=== PATIENT | female | born 2005 | race Caucasian/White ===

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

== ENCOUNTER 2025-03-22 08:26 | Inpatient (IN) | payer OTHER, SELFPAY ==
[2025-03-22] VITALS (19 sets, daily range): BP systolic 104–129; BP diastolic 63–89; PULSE 68–135; RESP 16–18; TEMP 36.6–37.2; O2SAT 92–98; BMI 22.1; BMI 21.4
--- NOTE | 2025-03-22 08:42 | RAD_ITS ---
PROCEDURE: CHEST 1 VIEW (PORTABLE) 03/22/2025 REASON FOR EXAM: SHORTNESS OF BREATH, ASTHMA TECHNIQUE: Frontal view of the chest. COMPARISON: 11/09/2023 FINDINGS: LUNGS AND PLEURA: Focal consolidation in the infrahilar right lung. No pleural effusion or pneumothorax. HEART AND MEDIASTINUM: The heart size and mediastinal contours are normal. BONES: No acute osseous abnormality. RAD/Chest 1 View (Portable) IMPRESSION: Right lung consolidation, consistent with pneumonia. Reading Location: [id number]
--- NOTE | 2025-03-22 08:47 | ED.VIS.DYS ---
HPI History of Present Illness Chief Complaint: Shortness of Breath Narrative Narrative: 19-year-old female past medical history of asthma presents with her significant other because increasing shortness of breath. She states that she has been using her nebulizer treatment at home without success. Her symptoms began yesterday evening. She states she has an occasional cough. She relates history that remotely when she was much younger, she had to be intubated and admitted to the hospital because of asthma exacerbation. Over the last few years has been well-controlled. She denies any fevers or chills but states she has had cough and increased difficulty breathing since yesterday evening. Her last steroid use was probably a month ago when she received a Kenalog shot. She does smoke. PFSH PFSH Home Medications ?Medication ?Instructions ?Recorded ?Last Taken ?Type fluoride (sodium) 1 mg PO DAILY 06/05/14 Unknown History loratadine 10 mg tablet (Allergy 10 mg PO DAILY PRN PRN Allergies 06/05/14 Unknown History Relief (loratadine)) albuterol sulfate 2.5 mg/3 mL 1 dose inhalation Q4H PRN PRN Sob 09/02/15 Unknown History (0.083 %) solution for nebulization &/Or Wheezing albuterol sulfate 90 mcg/actuation 2 puff inhalation Q6H PRN PRN Sob 09/02/15 Unknown History aerosol inhaler (Ventolin HFA) &/Or Wheezing mometasone 220 mcg/actuation(30 1 dose inhalation DAILY 09/02/15 Unknown History doses) breath activated powder inhaler (Asmanex Twisthaler) azithromycin 250 mg tablet 250 mg PO DAILY #3 tabs 09/03/15 Unknown Rx montelukast 5 mg chewable tablet 5 mg PO DAILY ##30 09/03/15 Unknown Rx (Singulair) prednisone 10 mg tablet 30 mg (3 x 10 mg) PO BIDCM #18 tabs 09/03/15 Unknown Rx Allergy/AdvReac Type Severity Reaction Status Date / Time animal dander Allergy Other Verified 03/22/25 08:27 Seasonal Allergies: Uncoded Allergy NEEDS Verified 03/22/25 08:27 FOLLOW-UP Social History Smoking Status: Never smoker ROS ROS ED ROS Narrative Review of systems is positive for shortness of breath, cough, and wheezing. Denies fevers or chills. Feels similar to previous asthma exacerbations. No leg swelling. Using albuterol nebulizer treatment 6 times in the last 24 hours without relief. EXAM Physical Exam Narrative Exam Narrative: Afebrile. Vital signs noted. Nontoxic-appearing. Cardiovascular examination reveals mild tachycardia. Respiratory examination shows diffuse expiratory wheezing throughout the bilateral lung schmidt. Intermittent tachypnea. Abdomen is soft nontender with positive bowel sounds. Neurological examination nonfocal, nonlateralizing. No noted pedal edema bilaterally. Const Vital Signs: 03/22/25 08:27 03/22/25 08:28 03/22/25 08:42 Temperature 99 F Temperature Source Temporal Pulse Rate 121 H 115 H Respiratory Rate 16 Respiratory Effort Respiratory Pattern Blood Pressure 125/89 H Blood Pressure Mean 101 Pulse Ox 92 96 Oxygen Delivery Method Room Air Room Air Oxygen Flow Rate (L/min) 03/22/25 08:47 03/22/25 09:05 03/22/25 10:11 Temperature Temperature Source Pulse Rate 116 H 135 H Respiratory Rate 16 16 Respiratory Effort Short of Breath Labored Respiratory Pattern Tachypnea Blood Pressure Blood Pressure Mean Pulse Ox Oxygen Delivery Method Room Air Oxygen Flow Rate (L/min) 03/22/25 10:58 Temperature Temperature Source Pulse Rate Respiratory Rate Respiratory Effort Respiratory Pattern Blood Pressure Blood Pressure Mean Pulse Ox 95 Oxygen Delivery Method Nasal Cannula Oxygen Flow Rate (L/min) 2 MDM MDM MDM Narrative Medical decision making narrative: Differential diagnosis includes but not limited to asthma exacerbation versus bronchitis versus pneumonia versus pneumothorax. I have low clinical suspicion for pneumothorax. Patient will be given a DuoNeb aerosolized treatment and prednisone 60 mg orally as a loading dose. I do feel chest x-ray is indicated given her continued shortness of breath. Her initial pulse ox was reportedly 89% on room air, but improved without intervention to 96 on room air. Patient was administered a DuoNeb aerosolized treatment and was starting to feel improved. Chest x-ray in 1 view interpreted by myself does show a right lower lobe pneumonia. I reviewed the radiology report which confirms my independent interpretation. She did have an episode of vomiting prior to the administration of oral doxycycline. She had been given Zofran. Patient was ambulated and she dropped to 88% on room air and does not wear oxygen at home. She was given another albuterol nebulizer treatment as well. At this point in time, as she is hypoxic, and tachycardic as well as tachypneic I do feel she requires at least observation. I obtain baseline laboratory work and she has slightly elevated white count of 11.9 with hemoglobin 12.9, platelet count normal at 263. BUN normal at 9 and creatinine 0.56, glucose 129 with normal anion gap of 11. Patient will be discussed with the hospitalist for observation for her pneumonia and hypoxia. Patient discussed with Dr. Gutierrez. Disposition is assigned observation in stable condition. History & Record Review Discussion w/independent historian: Patient Additional record(s) reviewed:: Prior ED visit (Last ED visit 2015, approximately 9 years ago) Lab Data Attestation: I reviewed the patient's lab results. Labs: Laboratory Results - last 24 hr 03/22/25 10:44 WBC 11.9 H RBC 4.79 Hgb 12.9 Hct 39.0 MCV 81.4 MCH 26.9 L MCHC 33.1 RDW Std Deviation 44.2 H RDW Coeff of Ira 14.8 H Plt Count 263 MPV 8.8 Immature Gran % (Auto) 0.400 Neut % (Auto) 88.7 H Lymph % (Auto) 4.6 L Carbon % (Auto) 4.4 Eos % (Auto) 1.6 Baso % (Auto) 0.3 Absolute Neuts (auto) 10.6 H Absolute Lymphs (auto) 0.55 L Nucleated RBC % 0 Sodium 137 Potassium 3.7 Chloride 103 Carbon Dioxide 23.4 Anion Gap 11 BUN 9 Creatinine 0.56 L Estim Creat Clear Calc 145.40 Est GFR (MDRD) Non-Af 135 BUN/Creatinine Ratio 16.6 Glucose 129 H Calcium 9.2 Radiography Chest X-Ray - ED: 1 View, Read by ED Physician, Read by Radiologist and Right Infiltrate Diagnostic Testing: Clinical Impression(s) from Imaging Studies Chest X-Ray 03/22/25 08:42 IMPRESSION: Right lung consolidation, consistent with pneumonia. Reading Location: [facility] Management Discussion w/another healthcare provider: Hospitalist (Dr. Gutierrez) Discharge Plan Dx/Rx/DC Orders Clinical Impression: Pneumonia, Hypoxia, Asthma Disposition Disposition: Acute Care [facility]
--- OUTSIDE RECORDS SUMMARY | 2025-03-22 09:06 | XMS RPT_ITS | CCD ---
Author Organization [facility] Care Team Providers Care President [employer] Name Role Phone Arnold Garcia Primary Care Provider ARNOLD GARCIA Primary Care Unavailable ARNOLD GARCIA Attending Unavailable REFERRED, SELF Referring Unavailable MARTÍNEZ TAYLOR Attending Unavailable REFERRED, SELF Referring Unavailable ARNOLD GARCIA Primary Care Unavailable Unavailable Primary Care Provider Unavailcarisa e Evon Diana DO Primary Care Provider [phone] Ricardo Bojorquez Attending Unavailable SELF, REFERRED Referring Unavailable EVON DIANA Primary Care Unavailable RICARDO BOJORQUEZ Referring Unavailabl e RICARDO BOJORQUEZ Primary Care Unavailabl SAMUEL Vargas Attending Unava ilable KATHY BENTLEY Attending Unavailable SELF, SELF Referring Unavailable FINEKATYH Attending Unavailable SELF, SELF Referring Unavailable FINEKATHY G Attending Unavailable SELF, SELF Referring Unavailable ALIX EASLEY Attending Unavailable SELF, SELF Referring Unavailable Dr. Evon Diana DO Primary Care Provider Cathy Lacy Attending Provider Cathy Mayorga Attending Unavailable Evon Diana Primary Care Unavailable Allergies Allergy Classification Reported Allergen(s) Allergy Type Date of Onset Reaction(s) Facility (2 sources) Environmental [Other] Propensity to adverse reactions 1 Other: See Comments [facility] (1 source) OTHER; Translations: [OTHER] Propensity to adverse reactions (disorder) 1 [facility] Repository (1 source) TRUMAN FLAVOR; Translations: [TRUMAN FLAVOR] Propensity to adverse reactions to drug (disorder) 7 [facility] Repository (1 source) truman allergenic extract; Translations: [TRUMAN] Drug Allergy 5 [facility] (2 sources) animal dander; Translations: [animal dander] Allergy to substance 6 Other [facility] (2 sources) Seasonal Allergies: Uncoded; Translations: [Seasonal Allergies: Uncoded] Allergy to substance 2 NEEDS FOLLOW-UP [facility] Medications Current Medications Medication Drug Class(es) Dates Sig (Normalized) Sig (Original) [id number] actuat albuterol 0.09 mg/actuat metered dose inhaler (4 sources) beta2-Adrenergic Agonist Start: 09-02-2015 Albuterol Sulfate (Ventolin Hfa (Sp)) 1 INHALER inhaler Active 2 NMA INHALATION EVERY 6 HOURS NEEDED as needed for Sob &/Or Wheezing September 02, 2015 12:00am Start: 08-09-2010 Albuterol Sulf ate 2.5 MG/3 ML solution for nebulization Active 1 NMA INHALATION EVERY 4 HOURS NEEDED as needed for Sob &/Or Wheezing September 02, 2015 12:00am Comment on above: Use 3 mL via nebuliz er every 4 hours as needed (for cough, wheezing or shortness of breath. ). azithromycin 250 mg oral tablet (1 source) Macrolide Antimicrobial Start: take 1 tablet by mouth once daily Azithromycin 250 MG tablet Active 250 mg PO DAILY 3 0 September 03, 2015 12:00am Please give one tablet by mouth daily for 3 days ibuprofen 20 mg/ml oral suspension (2 sources) Nonsteroidal Anti-inflammatory Drug ibuprofen 100 mg/5 m L oral suspension (ibuprofen) Take by mouth. Active loratadine 10 mg oral tablet (1 source) Start: take 1 tablet by mouth once daily as needed Loratadine (Allergy Relief (Loratadine)) 10 MG tablet Active 10 mg PO DAILY NEEDED as needed for Allergies June 05, 2014 1:00am 30 actuat mometasone furoate 0.22 mg/actuat dry powder inhaler (1 source) Corticosteroid Start: Mometasone (Asmanex Twisthaler) 220 MCG aerosol powdr breath activated Active 1 NMA INHALATION DAILY September 02, 2015 12:00am montelukast 5 mg chewable tablet (1 source) Leukotriene Receptor Antagonist Start: take 1 tablet by mouth once daily Montelukast (Singulair Chewable) 5 MG tablet,chewable Active 5 mg PO DAILY September 03, 2015 12:00am Please give 1 tablet by mouth daily nitrofurantoin, macrocrystals 25 mg / nitrofurantoin, monohydrate 75 mg oral capsule (2 sources) Nitrofuran Antibacterial Start: End: take 1 capsule by mouth twice daily nitrofurantoin monohydrate and macrocrystal (MACROBID) 100 mg capsule Take 1 capsule by mouth twice daily for 5 days. 10 capsule 0 10/18/2022 10/23/2022 Active Comment on above: Take 1 capsule by [facility] twice daily for 5 days. predniSONE 10 mg oral tablet (1 source) Start: take 3 tablets by mouth twice daily at mealtime Prednisone 10 MG tablet Active 30 mg PO TWICE DAILY WITH MEALS September 03, 2015 12:00am Please give 3 tablets by mouth twice a day for 3 days sodium fluoride 2.2 mg chewable tablet (1 source) Start: take 1 tablet by mouth once daily Fluoride (Sodium) 1 MG tablet,chewable Active 1 mg PO DAILY June 05, 2014 1:00am Completed/Discontinued Medications Medication Drug Class(es) Dates Sig (Normalized) Sig (Original) budesonide 0.125 mg/ml inhalation suspension (2 sources) [...] Indications: Allergic rhinitis, cause unspecified Use 1 [place] in each nostril once daily. 1 Bottle 11 08/09/2010 Active Comment on above: Use 1 [place] in each nostril once daily. Multivitamins ORAL [...] Comment on above: Take 1 tablet by dayna th three times daily as needed. 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; Translations: [Unspecified asthma with status asthmaticus] 09-02-2015 Chronic Genitourinary symptoms and ill-defined conditions (2 sources) Increased frequency of urination; Translations: [Frequency of micturition] Onset: 10-18-2022 Episodic Immunizations and screening for infectious disease (1 source) Encounter for screening for infections with a predominantly sexual mode of transmission; Translations: [Encounter for screening for infections with a predominantly sexual mode of transmission] Onset: 12-23-2024 Episodic Induced (2 sources) (Induced) termination of with unspecified complications; Translations: [Legally induced , with unspecified complication, complete] Onset: 05-16-2024 05-17-2024 Episodic Other female genital disorders (2 sources) Abnormal uterine and vaginal bleeding, unspecified; Translations: [Abnormal uterine and vaginal bleeding, unspecified] Onset: 05-17-2024 Chronic Other female genital disorders (1 source) Vaginal discharge; Translations: [Other specified noninflammatory disorders of vagina] 05-17-2024 Episodic Other female genital disorders (3 sources) Other specified noninflammatory disorders of vagina; Translations: [Other specified noninflammatory disorders of vagina] Onset: 05-16-2024 Episodic Other lower respiratory disease (1 source) Hypoxia; Translations: [Hypoxemia] 09-02-2015 Episodic Other upper respiratory disease (1 source) Pain in throat Onset: 05-16-2024 Episodic Results Test Name Value Interpretation Reference Range Facility L3410.9992on 12-20-[address] [facility] [place] [facility]. COMMENT Normal . [facility] Comment on above: Order Comment: 68799 1 VG+ SWAB RMT Result Comment: Test Ordered: [id number] Nuab Vaginitis Plus (VG+) Test(s) 560205- Atopobium vaginae; 325429- BVAB 2; 125511- Megasphaera 1 was developed and its performance characteristics determined by [facility]. It has not been cleared or approved by the Food and Drug Administration. Test(s) 477133-Fytexca albicans, RADHA; 927785- Ambreen glabrata, RADHA was developed and its performance characteristics determined by [facility]. It has not been cleared or approved by the Food and Drug Administration. Atopobium vaginae Low - 0 Score =G Reference Range: . BVAB 2 Low - 0 Score =G Reference Range: . Megasphaera 1 Low - 0 Score =G Reference Range: . Calculate total score by adding the 3 individual bacterial vaginosis (BV) marker scores together. Total score is interpreted as follows: Total score 0-1: Indicates the absence of BV. Total score 2: Indeterminate for BV. Additional clinical data should be evaluated to establish a diagnosis. Total score 3-6: Indicates the presence of BV. Ambreen albicans, RADHA Positive [A ] =G Reference Range: Negative Ambreen glabrata, RADHA Negative =G Reference Range: Negative Trich vag by RADHA Negative =G Reference Range: Negative Chlamydia trachomatis, RADHA Negative =G Reference Range: Negative Neisseria gonorrhoeae, RADHA Negative =G Reference Range: Negative Performed at: =[address] [id number] Condenser Tube Tender: Evelin Lord MD, Phone: [phone] Performed at: [address] [id number] Condenser Tube Tender: Erick Alford PhD, Phone: [phone] Performed By: #### L 3410.9992 #### [facility] [address] [facility]. [place], [place], [id number] Hepatitis Panel Acuteon 08-2 COMMENT Comment Normal . [facility] Comment on above: Result Comment: Not infected with HCV unless early or acute infection is suspected (which may be delayed in an immunocompromised individual), or other evidence exists to indicate HCV infection. Performed at: [address] [id number] Condenser Tube Tender: Erick Alford PhD, Phone: [phone] Performed By: #### L 3000.0375, L509.8002, L3043.6001 #### [facility] [address] [place], [place], [address] HEP B CORE,IgM Negative Normal Negative [facility] Comment on above: Performed By: #### L 3000.0375, L509.8002, L3890.6006 #### [facility] [address] [place], [place], [address] HEP B SURF AG Negative Normal Negative [facility] Comment on above: Performed By: #### L 3000.0375, L509.8002, L3890.600 #### [facility] [address] [place], [place], [id number] HEP C VIRUS AB Non-Reactive Normal Non Reactive [facility] Comment on above: Performed By: #### L 3000.0375, L509.8002, L3890.6006 #### [facility] [address] [facility] [place], [place], [address] HEPATITIS A-IgM Negative Normal Negative [facility] Comment on above: Result Comment: A ne gative anti-HAV IgM result suggests no recent or current HAV infection. Performed By: #### L 3000.0375, L509.8002, L3890.6006 #### [facility] [address] [place], [address] HIVon 12-17-2024 HIV Non-Reactive Normal Nonreactive [facility] Comment on above: Result Comment: Non- Reactive Reactive Repeatedly reactive samples must be confirmed according to CDC recommended confirmatory algorithms. The subresults for either HIVAG or AHIV can be used as an aid in the selection of the confirmation algorithm for reactive samples. Send out specimens with Reactive results to [facility] for confirmation. Order the HIV antibody detection and differentiation: [id number] Performed By: #### L 3000.0375, L509.8002, L3890.6006 #### [facility] [address] [facility] [place], [place], [id number] No Panel InformationOrdered By: Cathy Mayorga on 12-17-2024 Hepatitis C Antibody Comment Comment . [facility] Comment on above: Not infected with HC V unless early or acute infection issuspected (which may be delayed in an immunocompromisedindividual), or other evidence exists to indicate HCVinfection.Performed at: [address] [id number] Director: Erick Alford PhD, Phone: [phone] HIV (1&2) Antibody Non-Reactive Nonreactive [facility] Comment on above: Non-ReactiveReactive Repeatedly reactive samples must be confirmed according to CDC recommended confirmatory algorithms. The subresults for either HIVAG or AHIV can be used as an aid in the selection of the confirmation algorithm for reactive samples.Send out specimens with Reactive results to [facility] for confirmation.Order the HIV antibody detection and differentiation: [id number] Serum or plasma hepatitis B virus surface antigen detection by immunoassayOrdered By: Cathy Mayorga on 12-17-2024 HBV surface Ag IA Ql Negative Negative [facility] Syphilis Antibodieson 2024 Syphilis Abs Non-Reactive Normal Nonreactive [facility] Comment on above: Performed By: #### L 3000.0375, L509.8002, L3890.6006 #### [facility] [address] [place], [address] BASIC METABOLIC PANELon 05-01 Anion gap [Moles/Vol] 17 mmol/L Normal 10-20 [facility] Comment on above: Order Comment: [facility] has implemented the eGFR calculation approach that does not have a coefficient for race that conforms to the NKF-ASN Task Force Recommendations. Performed By: #### 4 6124 #### [facility] [address] [address] Nazario De Leon M.D. [id number] Calcium [Mass/Vol] 9.0 mg/dL Normal 8.4-10.2 [facility] Comment on above: Order Comment: [facility] has implemented the eGFR calculation approach that does not have a coefficient for race that conforms to the NKF-ASN Task Force Recommendations. Performed By: #### 4 6124 #### [facility] [address], [place] [address] Nazario De Leon M.D. [id number] Chloride [Moles/Vol] 102 mmol/L Normal 98-108 [facility] Comment on above: Order Comment: [facility] has implemented the eGFR calculation approach that does not have a coefficient for race that conforms to the NKF-ASN Task Force Recommendations. Performed By: #### 4 6124 #### [facility] [address], [place] [address] Nazario De Leon M.D. [id number] Creatinine [Mass/Vol] 0.45 mg/dL Low 0.50-1.00 [facility] Comment on above: Order Comment: [facility] has implemented the eGFR calculation approach that does not have a coefficient for race that conforms to the NKF-ASN Task Force Recommendations. Performed By: #### 4 6124 #### [facility] [address] [address] Nazario De Leon M.D. [id number] EGFR 143 mL/min/1.73 m2 Normal >=60 [facility] Comment on above: Order Comment: [facility] has implemented the eGFR calculation approach that does not have a coefficient for race that conforms to the NKF-ASN Task Force Recommendations. Result Comment: Sierra mated GFR was calculated using the 2020 CKD-EPI creatinine equation. Performed By: #### 4 6124 #### [facility] [address] [address] Nazario De Leon M.D. [id number] Glucose [Mass/Vol] 90 mg/dL Normal 65-99 [facility] Comment on above: Order Comment: [facility] has implemented the eGFR calculation approach that does not have a coefficient for race that conforms to the NKF-ASN Task Force Recommendations. Performed By: #### 4 6124 #### [facility] [address] [address] Nazario De Leon M.D. [id number] HCO3 (Bld) [Moles/Vol] 21 mmol/L Normal 21-32 [facility] Comment on above: Order Comment: [facility] has implemented the eGFR calculation approach that does not have a coefficient for race that conforms to the NKF-ASN Task Force Recommendations. Performed By: #### 4 6124 #### [facility] [address] [address] Nazario De Leon M.D. [id number] Potassium [Moles/Vol] 3.8 mmol/L Normal 3.5-5.1 [facility] Comment on above: Order Comment: [facility] has implemented the eGFR calculation approach that does not have a coefficient for race that conforms to the NKF-ASN Task Force Recommendations. Performed By: #### 4 6124 #### [facility] [address] [address] Nazario De Leon M.D. [id number] Sodium [Moles/Vol] 136 mmol/L Normal 135-145 [facility] Comment on above: Order Comment: [facility] has implemented the eGFR calculation approach that does not have a coefficient for race that conforms to the NKF-ASN Task Force Recommendations. Performed By: #### 4 6124 #### [facility] [address] [address] Nazario De Leon M.D. [id number] Urea nitrogen [Mass/Vol] 6 mg/dL Low 8-25 [facility] Comment on above: Order Comment: [facility] has implemented the eGFR calculation approach that does not have a coefficient for race that conforms to the NKF-ASN Task Force Recommendations. Performed By: #### 4 6124 #### [facility] [address] [address] Nazario De Leon M.D. [id number] Urea nitrogen/Creatinine [Mass ratio] 13.3 mg/mg Normal 10.0-20.0 [facility] Comment on above: Order Comment: [facility] has implemented the eGFR calculation approach that does not have a coefficient for race that conforms to the NKF-ASN Task Force Recommendations. Performed By: #### 4 6124 #### [facility] [address] [address] Nazario De Leon M.D. [id number] C trach/N gono/T vag Panelon 05-17-2024 C. trachomatis amp. Not detected Normal [facility] Comment on above: Performed By: #### C TGCTP #### [place] [address] Comment Optimal performance is obtained with First Catch urines. Clean catch urine samples have been shown to have reduced sensitivity for the detection of C. trachomatis, N. gonorrhoeae and T. vaginalis using the APTIMA nucleic acid amplification method. Normal [facility] Comment on above: Performed By: #### C TGCTP #### [place] [address] N. gonorrhoeae amp. Not detected Normal [facility] Comment on above: Performed By: #### C TGCTP #### Performed at [address] [address] T. vaginalis amp. Not detected Normal [facility]T [facility] Comment on above: Performed By: #### C TGC #### [place] [address] CBC WITH AUTO DIFFERENTIALon 05-17-2024 AUTO NRBC 0.0 % Normal [facility] Comment on above: Performed By: #### L [id number] #### [facility] [address] [address] Nazario De Leon M.D. [id number] AUTO NRBC ABS COUNT 0.00 K/mcL Normal 0.00-0.00 [facility] Comment on above: Performed By: #### L [id number] #### [place] [address] [address] Nazario De Leon M.D. [id number] BASOPHILS ABSOLUTE COUNT 0.04 K/mcL Normal 0.00-0.30 [facility] Comment on above: Performed By: #### L [id number] #### [facility] [address] [address] Nazario De Leon M.D. [id number] Basophils/100 WBC (Bld) 0.3 % Normal [facility] Comment on above: Performed By: #### L [id number] #### [facility] [address] [address] Nazario De Leon M.D. [id number] Eosinophils (Bld) [#/Vol] 0.39 10*3/uL Normal 0.00-0.50 [facility] Comment on above: Performed By: #### L [id number] #### [facility] [address] [address] Nazario De Leon M.D. [id number] Eosinophils/100 WBC (Bld) 3.3 % Normal [facility] Comment on above: Performed By: #### L [id number] #### [facility] [address] [address] Nazario De Leon M.D. [id number] Erythrocyte distribution width (RBC) [Ratio] 16.1 % High 11.6-14.8 [facility] Comment on above: Performed By: #### L [id number] #### [facility] [address] [address] Nazario De Leon M.D. [id number] Hematocrit (Bld) [Volume fraction] 33.1 % Low 36.0-46.0 [facility] Comment on above: Performed By: #### L [id number] #### [place] [address] [place] [address] Nazario De Leon M.D. [id number] Hemoglobin (Bld) [Mass/Vol] 10.9 g/dL Low 12.0-16.0 [facility] Comment on above: Performed By: #### L [id number] #### [place] [address] [place] [address] Nazario De Leon M.D. [id number] IG ABSOLUTE 0.03 K/mcL Normal 0.00-0.30 [facility] Comment on above: Performed By: #### Kaila [id number] #### [place] [address] [address] Nazario De Leon M.D. [id number] IG PERCENT 0.30 % Normal [facility] Comment on above: Result Comment: The IG parameter is the percentage of metamyelocytes, myelocytes and promyelocytes. An immature granulocyte count (IG) of 1% or more suggests the possibility of infection, an IG count of 3% is very likely related to an infection. Performed By: #### L [id number] #### [place] [address] [address] Nazario De Leon M.D. [id number] Lymphocytes (Bld) [#/Vol] 1.78 10*3/uL Normal 0.90-4.00 [facility] Comment on above: Performed By: #### L [id number] #### [place] [address] [address] Nazario De Leon M.D. [id number] Lymphocytes/100 WBC (Bld) 15.0 % Normal [facility] Comment on above: Performed By: #### L [id number] #### [place] [address] [address] Nazario De Leon M.D. [id number] MCH (RBC) [Entitic mass] 26.7 pg Normal 25.0-35.0 [facility] Comment on above: Performed By: #### Kaila [id number] #### [facility] [address] [address] Nazario De Leon M.D. [id number] MCV (RBC) [Entitic vol] 81.1 fL Normal 78.0-102.0 [facility] Comment on above: Performed By: #### Kaila [id number] #### [facility] [address] [address] Nazario De Leon M.D. [id number] MEAN CORPUSCULAR HEMOGLOBIN CONC 32.9 g/dL Normal 31.0-37.0 [facility] Comment on above: Performed By: #### Kaila [id number] #### [facility] [address] [address] Nazario De Leon M.D. [id number] Monocytes (Bld) [#/Vol] 1.23 10*3/uL High 0.30-0.90 [facility] Comment on above: Performed By: #### Kaila [id number] #### [facility] [address] [address] Nazario De Leon M.D. [id number] Monocytes/100 WBC (Bld) 10.4 % Normal [facility] Comment on above: Performed By: #### L [id number] #### [facility] [address] [address] Nazario De Leon M.D. [id number] NEUTROPHILS ABSOLUTE COUNT 8.38 K/mcL High 1.70-7.00 [facility] Comment on above: Performed By: #### L [id number] #### [facility] [address] [address] Nazario De Leon M.D. [id number] Neutrophils/100 WBC (Bld) 70.7 % Normal [facility] Comment on above: Performed By: #### L [id number] #### [facility] [address] [address] Nazario De Leon M.D. [id number] Platelet mean volume (Bld) [Entitic vol] 8.8 fL Low 9.4-12.4 [facility] Comment on above: Performed By: #### L [id number] #### [facility] [address] [address] Nazario De Leon M.D. [id number] Platelets (Bld) [#/Vol] 345 10*3/uL Normal 150-400 [facility] Comment on above: Performed By: #### L [id number] #### [facility] [address] [address] Nazario De Leon M.D. [id number] RBC (Bld) [#/Vol] 4.08 10*6/uL Low 4.10-5.10 [facility] Comment on above: Performed By: #### L [id number] #### [facility] [address] [address] Nazario De Leon M.D. [id number] WBC (Bld) [#/Vol] 11.85 10*3/uL High 4.50-11.00 [facility] Comment on above: Performed By: #### L [id number] #### [facility] [address] [address] Nazario De Leon M.D. [id number] CHLAMYDIA/GONORRHOEAE AMPLIF IED RNAon 05-17-2024 CHLAMYDIA/GONORRHOEAE AMPLIFIED RNA CHLAMYDIA TRACHOMATIS AMPLIFIED RNA NEGATIVE NEISSERIA GONORRHOEAE AMPLIFIED RNA NEGATIVE Normal Negative [facility] Comment on above: Performed By: #### L [id number] #### [facility] [address] [place] [address] Dejuan Stewart M.D. [id number] ED Prov Noteon 05-17-2024 ED Prov Note PCP - iRcardo Bojorquez MD [id number] Chief Complaint Patient presents with Abdominal Pain [...] Resource Strain: Low Risk (05/16/2024) Received from [facility] Overall Financial Resource Strain (CARDIA) Difficulty of Paying Living Expenses: Not hard at all Food Insecurity: No Food Insecurity (05/16/2024) Received from [facility] Hunger Vital Sign Worried About Running Out of Food in the Last Year: Never true Ran Out of Food in the Last Year: Never true Transportation Needs: No Transportation Needs (05/16/2024) Received from [facility] PRAPARE - Transportation Lack of Transportation (Medical): No Lack of Transportation (Non-Medical): No Housing Stability: Low Risk (05/16/2024) Received from [facility] Housing Stability Vital Sign Unable to [...] No adnexal masses or tenderness appreciated. Procedures [facility] Measure #254: Ultrasound for with Abdominal Pain [...] All other components within normal limits Narrative: [facility] has implemented the eGFR calculation approach that does not have a coefficient for race that conforms to the NKF-ASN Task Force Recommendations. HCG, BLOOD, QUANTITATIVE - Abnormal; Notable for the following components: hCG Quant 293 (*) All other components within normal limits Narrative: Males and non females: <5 mIU/mL Females during pregn (more content not included)... Normal [facility] HCG, BLOOD, QUANTITATIVEon 0 05-17-2024 HCG, [...] mIU/mL Performed By: #### 4 [id number] #### [facility] [address] [id number] Nazario De Leon M.D. [id number] URINALYSISon 05-17-2024 BACTERIA, URINE None Seen Normal None Seen [facility] Comment on above: Order Comment: Micro scopic examination is performed on all urinalysis samples and only positive findings are reported. The test for blood on the chemical analytic portion of urinalysis may also be positive due to hemoglobinuria and myoglobinuria and if red blood cells are present they are quantified by microscopic examination. Performed By: #### 4 [id number] #### [facility] [address] [id number] Nazario De Leon M.D. [id number] BILIRUBIN, URINE Negative Normal Negative [facility] Comment on above: Order Comment: Micro scopic examination is performed on all urinalysis samples and only positive findings are reported. The test for blood on the chemical analytic portion of urinalysis may also be positive due to hemoglobinuria and myoglobinuria and if red blood cells are present they are quantified by microscopic examination. Performed By: #### 4 [id number] #### [facility] [address] [id number] Nazario De Leon M.D. [id number] BLOOD, URINE Large Abnormal Negative [facility] Comment on above: Order Comment: Micro scopic examination is performed on all urinalysis samples and only positive findings are reported. The test for blood on the chemical analytic portion of urinalysis may also be positive due to hemoglobinuria and myoglobinuria and if red blood cells are present they are quantified by microscopic examination. Performed By: #### 4 6625 #### [facility] [address] [address] Nazario De Leon M.D. [id number] Clarity (U) Clear Normal Clear [facility] Comment on above: Order Comment: Micro scopic examination is performed on all urinalysis samples and only positive findings are reported. The test for blood on the chemical analytic portion of urinalysis may also be positive due to hemoglobinuria and myoglobinuria and if red blood cells are present they are quantified by microscopic examination. Performed By: #### 4 [id number] #### [facility] [address] [address] Nazario De Leon M.D. [id number] Color (U) Yellow Normal Colorless, Yellow [facility] Comment on above: Order Comment: Micro scopic examination is performed on all urinalysis samples and only positive findings are reported. The test for blood on the chemical analytic portion of urinalysis may also be positive due to hemoglobinuria and myoglobinuria and if red blood cells are present they are quantified by microscopic examination. Performed By: #### 4 [id number] #### [facility] [address] [address] Nazario De Leon M.D. [id number] Glucose Ql (U) Negative Normal Negative, >=1000 [facility] Comment on above: Order Comment: Micro scopic examination is performed on all urinalysis samples and only positive findings are reported. The test for blood on the chemical analytic portion of urinalysis may also be positive due to hemoglobinuria and myoglobinuria and if red blood cells are present they are quantified by microscopic examination. Performed By: #### 4 [id number] #### [facility] [address] [address] Nazario De Leon M.D. [id number] Ketones Ql (U) Negative Normal Negative [facility] [...] examination. Performed By: #### 4 [id number] #### [facility] [address] [id number] Nazario De Leon M.D. [id number] Leukocyte esterase Test strip Ql (U) Small Abnormal Negative [facility] Comment on above: Order Comment: Micro scopic examination is performed on all urinalysis samples and only positive findings are reported. The test for blood on the chemical analytic portion of urinalysis may also be positive due to hemoglobinuria and myoglobinuria and if red blood cells are present they are quantified by microscopic examination. Performed By: #### 4 [id number] #### [facility] [address] [address] Nazario De Leon M.D. [id number] MUCUS, URINE Rare Normal None Seen, [facility] Comment on above: Order Comment: Micro scopic examination is performed on all urinalysis samples and only positive findings are reported. The test for blood on the chemical analytic portion of urinalysis may also be positive due to hemoglobinuria and myoglobinuria and if red blood cells are present they are quantified by microscopic examination. Performed By: #### 4 [id number] #### [facility] [address] [address] Nazario De Leon M.D. [id number] NITRITE, URINE Negative Normal Negative [facility] [...] examination. Performed By: #### 4 [id number] #### [facility] [address] [address] Nazario De Leon M.D. [id number] pH (U) 6.5 [pH] Normal 5.0-7.0 [facility] Comment on above: Order Comment: Micro scopic examination is performed on all urinalysis samples and only positive findings are reported. The test for blood on the chemical analytic portion of urinalysis may also be positive due to hemoglobinuria and myoglobinuria and if red blood cells are present they are quantified by microscopic examination. Performed By: #### 4 [id number] #### [facility] [address] [address] Nazario De Leon M.D. [id number] PROTEIN, URINE Negative Normal Negative [facility] [...] examination. Performed By: #### 4 [id number] #### [facility] [address] [address] Nazario De Leon M.D. [id number] RBC, URINE < Normal 0-3 [facility] Comment on above: Order Comment: Micro scopic examination is performed on all urinalysis samples and only positive findings are reported. The test for blood on the chemical analytic portion of urinalysis may also be positive due to hemoglobinuria and myoglobinuria and if red blood cells are present they are quantified by microscopic examination. Performed By: #### 4 6625 #### [facility] [address] [address] Nazario De Leon M.D. [id number] Specific gravity (U) [Rel density] 1.012 Normal 1.005-1.025 [facility] Comment on above: Order Comment: Micro scopic examination is performed on all urinalysis samples and only positive findings are reported. The test for blood on the chemical analytic portion of urinalysis may also be positive due to hemoglobinuria and myoglobinuria and if red blood cells are present they are quantified by microscopic examination. Performed By: #### 4 [id number] #### [facility] [address] [address] Nazario De Leon M.D. [id number] SQUAMOUS EPITHELIAL 2 /hpf Normal 0-4 [facility] Comment on above: Order Comment: Micro scopic examination is performed on all urinalysis samples and only positive findings are reported. The test for blood on the chemical analytic portion of urinalysis may also be positive due to hemoglobinuria and myoglobinuria and if red blood cells are present they are quantified by microscopic examination. Performed By: #### 4 [id number] #### [facility] [address] [address] Nazario De Leon M.D. [id number] UROBILINOGEN, URINE <2.0 Normal <2.0 [facility] Comment on above: Order Comment: Micro scopic examination is performed on all urinalysis samples and only positive findings are reported. The test for blood on the chemical analytic portion of urinalysis may also be positive due to hemoglobinuria and myoglobinuria and if red blood cells are present they are quantified by microscopic examination. Performed By: #### 4 6625 #### [facility] [address], [place] [address] Nazario De Leon M.D. [id number] WBC LM.HPF (Urine sed) [#/Area] 2 /[HPF] Normal 0-5 [facility] Comment on above: Order Comment: Micro scopic examination is performed on all urinalysis samples and only positive findings are reported. The test for blood on the chemical analytic portion of urinalysis may also be positive due to hemoglobinuria and myoglobinuria and if red blood cells are present they are quantified by microscopic examination. Performed By: #### 4 6625 #### [facility] [address], [place] [address] Nazario De Leon M.D. [id number] US PELVIC TRANSABDOMINAL AND TRANSVAGINAL WITH COLOR [...] Sac: Not present. Embryo(<11wk)/Fetus(> =11wk): Not present. [place]-Rump Length: Not measured. Rate of Cardiac Activity [...] imaging as indicated. 2. Normal bilateral ovaries. [employer] Workstation ID: [id number] Dictated by: MIGUEL ANGEL OMER on MonMay 17, 2024 2:29:36 AM EST Transcribed by: MESSI BENAVIDEZ on MonMay 17, 2024 2:42:35 AM EST Finalized by: MIGUEL ANGEL OMER on MonMay 17, 2024 6:20:20 AM EST Normal [facility] Comment on above: Order Comment: Injur y/Trauma [...] Cells Seen Abnormal No Clue Cells Seen [facility] Comment on above: Performed By: #### 4 [id number] #### [facility] [address] [address] Nazario De Leon M.D. [id number] C trach/N gono/T vag Panelon 05-16-2024 Specimen Description Urine Normal [place] [facility] Comment on above: Performed By: #### C TGCTP #### [place] [address] HCG ( test) Qlon HCG ( test) Ql (U) Positive Abnormal Negative [facility] Interpretation and review of laboratory results Abnormal [facility] Service comment 40 (Unsp spec) [Interp] First morning urine is the specimen of choice for urine test. False negative results can occur when random urine specimens are tested. A serum test is recommended if results do not correlate with the patient's clinical condition. [facility] POC RAPID MOL GROUP A STREP, THROATon 05-16-2024 S. pyogenes DNA RADHA+probe Ql (Throat) Not detected Not Detected [facility] Comment on above: This test detects [...] the performance characteristics have been verified by [facility] affiliated laboratories. POC Rpd Mol Grp A Strep,Thro aton 05-16-2024 POC Rpd Mol Grp A Strep,Throat Normal NODT [facility] Comment on above: Result Comment: Not [...] the performance characteristics have been verified by [facility] affiliated laboratories. POCT HCG, Urine Qualitativeo n 05-16-2024 Beta HCG ( test) Ql (U) Positive Abnormal NEG [facility] Comment: First morning urine is the specimen of choice for urine test. False negative results can occur when random urine specimens are tested. A serum test is recommended if results do not correlate with the patient's clinical condition. Normal [facility] POCT Urinalysis, Strip Onlyo n 05-16-2024 Appearance (U) Clear Normal [facility] Bilirubin, Urine Strip Negative [facility] Glucose, [facility]rine Strip Negative Normal [facility] [facility] Ketone, Urine Strip Negative Normal NEG [facility] Leukocyte esterase, Ur Strip Negative Normal NEG [facility] Nitrite, Urine Strip Negative Normal NEG [place] [facility] Occult blood, Urine Strip Negative Normal NEG [facility] pH, Urine Strip 7.5 Normal 4.5-8.0 [facility] Protein, Urine Strip Negative Normal NEG [place] [facility] Specific [place], Urine Strip 1.020 Normal 1.007-1.030 [facility] Specimen Color Yellow Normal [facility] Urobilinogen (U) [Mass/Vol] 0.2 mg/dL Normal <1.1 [facility] S. pyogenes DNA RADHA+probe Ql (Throat)on 05-16-2024 [facility] Urinalysis dipstick panel Au to test strip (U)on 05-16-2024 Bilirubin Ql (U) Negative Negative [facility] Color (U) Yellow [facility] Glucose Ql (U) Negative Negative mg/dL [facility] Ketones (U) [Mass/Vol] Negative Negative mg/d L [facility] Leukocyte esterase Auto test strip Ql (U) Negative Negative [facility] Nitrite Auto test strip Ql (U) Negative Negative [facility] pH (U) 7.5 [pH] 4.5 - 8.0 [facility] Protein (U) [Mass/Vol] Negative Negative mg/d L [facility] RBC (U) [#/Vol] Negative Negative [facility] Specific gravity (U) [Rel density] 1.020 1.007 - 1.030 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 Normal [facility] Ulices 10-20-2022 SAMMY Telephone ([facility]WSTR) ROSARIO OBRIEN ([id number]) 5 F Date Time Provider Department 10/20/22 JORGE SERRANO During your visit today, we recorded the following information about you: Jorge Serrano MD 10/20/2022 7:19 AM Signed Urine culture did not show an infection. Finish antibiotic and follow up with PCP, urology, or MANAGER INTERNAL for recheck because of blood in the [...] 50 mcg/Actuation NASAL nasal spray Use 1 [place] in each nostril once daily. - triamcinolone acetonide 0.1 % TOPICAL ointment Apply to affected area twice daily. As needed to areas of areas eczema flare-up. Avoid use on the face. Problem List As Of Date: 10/20/2022 (None) Encounter Status:Closed by REBECCA JANG on 10/20/22 Normal [facility] Bacteria Ur Culton 3 Bacteria identified Cx Nom (U) CULTURE, URINE: No growth (<1,000 CFU/ml) Normal [facility] Comment on above: Performed By: #### 6 30-4 #### [facility] CLIA [id number] [address] [place] [address] OF [facility] CNOVon 10-18-2022 CNOV Office Visit ([facility] ) ROSARIO OBRIEN ([id number]) 5 F Date Time Provider Department 10/18/22 7:45 PM ELSI WHITAKER [facility] During your visit today, we recorded [...] Patient agreeable to treatment plan. Elsi Whitaker APRN.FOREST FIRE PREVENTION MANAGER Referring Provider: SELF [200] Allergies As of Date: 10/18/2022 Noted Allergy Reaction Environmental [Other] 08/09/2010 14 - Other: See Comments Comments: Cats, Dogs, Dust Mites, Molds, Weeds Date Reviewed: 10/18/2022 Reviewed by: Anatoliy Lal Ma - Fully Assessed Reason for Visit: UTI [116] Cmt: Burning and frequency Primary Visit Diagnosis:Urinary frequency [R35.0] Order(s):UA DIP, URINE (POC) [3467832] Order #: [id number]. #:[id number] URINE CULTURE [SQURCUL] Order #: [id number]. #:[id number] nitrofurantoin monohydrate and macrocrystal (MACROBID) 100 mg [...] 50 mcg/Actuation NASAL nasal spray Use 1 [place] in each nostril once daily. - triamcinolone [...] Status:Closed by ELSI WHITAKER on 10/18/22 Normal [facility] UA DIP, URINE (POC)on 2022 BILIRUBIN UA (POCT) Negative Negative [facility] CLARITY UA (POCT) Slightly Cloudy Cl [facility] COLOR UA (POCT) Other [facility] GLUCOSE UA (POCT) Negative Negative mg/dL [facility] HEMOGLOBIN/BLOOD UA (POCT) Moderate Abnormal Negative [facility] KETONE UA (POCT) Negative Negative mg/dL [facility] LEUKOCYTES UA (POCT) Trace Abnormal Negative [facility] NITRITE UA (POCT) Negative Negative [facility] UA (POCT) 7.0 4.5 - 8.0 [facility] Protein Ql (U) Trace Abnormal Negative mg/dL [facility] SPECIFIC GRAVITY UA (POCT) 1.025 1.005 - 1.030 [facility] UROBILINOGEN UA (POCT) 0.2 E.U./dL Normal E.U./ dL [facility] Progress Noteon 08-15-2022 Fire Prevention Bureau Captain Authentication Interface Message Text Patient ID: Rosario [...] our office- recommended pt be seen by land surveying party chief if wanting allergy shots. Offered referral, sapphire [...] adenopathy present. Neurological: She is alert. Normal [facility] Vital Signs Date Time Vital Sign Value Performing Clinician Facility 05-16-2024 22:55-0500 Body temperature 98.71 [degF] Ricardo Bojorquez MD Work Phone: [facility] 05-16-2024 22:55-0500 Diastolic blood pressure 85 mm[Hg] Ricardo Bojorquez MD Work Phone: [facility] 05-16-2024 22:55-0500 Heart rate 110 /min Ricardo Bojorquez MD Work Phone: [facility] 05-16-2024 22:55-0500 Respiratory rate 16 /min Ricardo Bojorquez MD Work Phone: [facility] 05-16-2024 22:55-0500 SaO2% (BldA) [Mass fraction] 98 % Ricardo Bojorquez MD Work Phone: [facility] 05-16-2024 22:55-0500 Systolic blood pressure 129 mm[Hg] Ricardo Bojorquez MD Work Phone: [facility] 05-16-2024 21:20-0500 Body weight 63.1 kg Ricardo Bojorquez MD Work Phone: [facility] 10-18-2022 19:52-0400 Body temperature 97.7 [degF] Elsi Older PHILOSOPHY PROFESSOR.FOREST FIRE PREVENTION MANAGER Work Phone: [facility] 10-18-2022 19:52-0400 Body weight 60.33 kg Elsi Older PHILOSOPHY PROFESSOR.FOREST FIRE PREVENTION MANAGER Work Phone: [facility] 10-18-2022 19:52-0400 Diastolic blood pressure 64 mm[Hg] Elsi Older PHILOSOPHY PROFESSOR.FOREST FIRE PREVENTION MANAGER Work Phone: [facility] 10-18-2022 19:52-0400 Heart rate 78 /min Elsi Older PHILOSOPHY PROFESSOR.FOREST FIRE PREVENTION MANAGER Work Phone: [facility] 10-18-2022 19:52-0400 Respiratory rate 14 /min Elsi Older PHILOSOPHY PROFESSOR.FOREST FIRE PREVENTION MANAGER Work Phone: [facility] 10-18-2022 19:52-0400 Systolic blood pressure 104 mm[Hg] Elsi Older PHILOSOPHY PROFESSOR.FOREST FIRE PREVENTION MANAGER Work Phone: [facility] Encounters Encounter Date Encounter Type Care Provider Facility Start: 12-17-2024 End: 12-17-[address] Evon Diana DO Work Phone: -[facility] Start: 12-17-2024 End: 12-17-2024 Patient encounter procedure Cathy Mayorga CNC MILL SET UP OPERATOR-C -[facility] Start: 12-17-2024 End: 12-17-2024 ambulatory Cathy Baezpramod Facility:[facility] Start: 07-15-2024 End: 07-15-2024 Patient encounter procedure Alix MILLER Work Phone: [employer] [employer] [facility] [employer] Comment on above: Adjustment disorder with anxiety (Primary Dx) Start: 07-15-2024 ambulatory ALIX Lorenzana lity:[facility] Start: 05-19-2024 End: 05-19-2024 Documentation procedure Fatemeh Medellinfernandokareem TAX ATTORNEY Work Phone: [facility] Main Comment on above: Social Work Note Start: 05-17-2024 End: 05-17-2024 Emergency department patient visit RICARDO BOJORQUEZ [facility] Start: 05-16-2024 End: 05-17-2024 Emergency department patient visit Ricardo Bojorquez MD Work Phone: Emergency Department [facility] [place] Comment on above: Vaginal discharge (P rimary Dx); Complication following medical ; Pelvic pain Start: 04-03-2024 End: 04-03-2024 Patient encounter procedure Kathy Bentley PIG STICKER Work Phone: [facility] Comment on above: Adjustment disorder with anxiety (Primary Dx) Start: 04-03-2024 ambulatory KATHY G FINE Facilit y:[facility] Start: 03-22-2024 End: 03-22-2024 Patient encounter procedure Kathy Bentley PIG STICKER Work Phone: [email or web address] Comment on above: Adjustment disorder with anxiety (Primary Dx) Start: 03-22-2024 ambulatory KATHY G FINE Facilit y:[facility] Start: 03-13-2024 ambulatory KATHY G FINE Facilit y:[facility] Start: 03-13-2024 End: 03-13-2024 Patient encounter procedure Kathy Bentley PIG STICKER Work Phone: [email or web address] Comment on above: Adjustment disorder with anxiety (Primary Dx) Start: 01-13-2023 End: 01-13-2023 ambulatory ARNOLD GARCIA [facility] Start: 10-20-2022 Telephone encounter Jorge Keith MD Work Phone: [facility] Comment on above: Results (Urine Cx ne gative) Start: 10-18-2022 End: 10-18-2022 ambulatory ARNOLD RANDHAWA GARCIA Facility:[facility] Start: 10-18-2022 End: 10-18-2022 Patient encounter procedure Elsi Older PHILOSOPHY PROFESSOR.FOREST FIRE PREVENTION MANAGER Work Phone: [facility] Comment on above: Urinary frequency (P rimary Dx) Start: 08-15-2022 End: 08-15-2022 ambulatory MARTÍNEZ Hightower CLAUDIA [facility] Procedures Date Procedure Procedure Detail Performing Clinician Start: 12-17-2024 Hepatitis A virus antibody, IgM type Dr. Evon Diana DO Work Phone: Comment on above: A negative anti-HAV IgM result suggests no recent orcurrent HAV infection. Start: 12-17-2024 Hepatitis B core antibody measurement, IgM type Dr. Evon Diana DO Work Phone: Start: 12-17-2024 Hepatitis C antibody measurement Dr. Lisandra Diana DO Work Phone: Start: 12-17-2024 Serologic test for syphilis Dr. Evon Diana DO Work Phone: Start: 12-17-[address] Evon Diana DO Work Phone: Comment on above: Test Ordered: [id number] Nuab Vaginitis [facility] (VG+)Test(s) 877798- Atopobium vaginae; 102380- BVAB 2;137364- Megasphaera 1was developed and its performance characteristicsdetermined by [facility]. It has not been cleared or approvedby the Food and Drug Administration.Test(s) 374490-Bvjiuxn albicans, RADHA; 961142-Gdhmlyn glabrata, NAAwas developed and its performance characteristicsdetermined by [facility]. It has not been cleared or approvedby the Food and Drug Administration. Atopobium vaginae Low - 0 Score =G Reference Range: . BVAB 2 Low - 0 Score =G Reference Range: . Megasphaera 1 Low - 0 Score =G Reference Range: .Calculate total score by adding the 3 individual bacterialvaginosis (BV) marker scores together. Total score isinterpreted as follows:Total score 0-1: Indicates the absence of BV.Total score 2: Indeterminate for BV. Additional clinical data should be evaluated to establish a diagnosis.Total score 3-6: Indicates the presence of BV.Ambreen albicans, RADHA Positive [A ] =G Reference Range: NegativeCandida glabrata, RADHA Negative =G Reference Range: NegativeTrich vag by RADHA Negative =G Reference Range: NegativeChlamydia trachomatis, RADHA Negative =G Reference Range: NegativeNeisseria gonorrhoeae, RADHA Negative =G Reference Range: NegativePerformed at: =G - [facility] [id number] Director: Evelin Lord MD, Phone: [phone] at: - [facility] [id number] [place], [place] [id number] Director: Erick Alford PhD, Phone: [phone] Start: 05-16-2024 Choriogonadotropin ( test) [Presence] in Serum or Plasma Doctor Not On File Work Phone: Start: 05-16-2024 Urinalysis dipstick panel - Urine by Automated test strip Doctor Not On File Work Phone: Start: 05-16-2024 Streptococcus pyogenes DNA [Presence] in Throat by RADHA with probe detection Doctor Not On File Work Phone: Start: 10-18-2022 Urnls dip stick/tablet rgnt auto w/o microscopy Lesley Madison APRN.FOREST FIRE PREVENTION MANAGER Work Phone: Plan of Treatment Date Care Activity Detail Author Start: 12-09-2027 Tetanus vaccination TETANUS [facility] Start: 04-03-2024 End: 04-03-2024 Patient encounter procedure 04/03/2024 2:00 PM EST Office Visit [facility] [address] [place] [phone] Kathy Bentley LISW [address] [place] [phone] [facility] Start: 03-22-2024 End: 03-22-2024 Patient encounter procedure 03/22/2024 11:00 AM EST Office Visit [facility] [address] [place] [phone] Kathy Bentley LISW [address] [place] [phone] [facility] Start: 12-31-2023 COVID-19 VACCINE ( season) COVID-19 VACCINE ( season) [facility] Start: 12-31-2023 Influenza vaccination INFLUENZA VACC INE (#1) [facility] Start: 12-30-2022 Influenza vaccination INFLUENZ A (Season Ended) [facility] Start: 2021 Meningococcal ACWY Vaccine (1 - 2-dose series) Meningococcal ACWY Vaccine (1 - 2-dose series) [facility] Start: 2021 Meningococcal B Vacc ine (1 of 2 - Standard) Meningococcal B Vaccine (1 of 2 - Standard) [facility] Start: 2021 MENINGOCOCCAL CONJUG ATE (1 - 2-dose series) MENINGOCOCCAL CONJUGATE (1 - 2-dose series) [facility] Start: 2021 Screening for Chlamy ericka trachomatis CHLAMYDIA SCREEN [facility] Start: 2020 CHLAMYDIA SCREENING (<18) CHLAMYDIA SCREENING (<18) [facility] Start: 2020 GC (GONORRHEA) SCREE JACQUELYN (<18) GC (GONORRHEA) SCREENING (<18) [facility] Start: 2020 HIV screening HIV SCREENING DISCUSSION [facility] Start: 2020 HPV Vaccine (1 - 3-d ose series) HPV Vaccine (1 - 3-dose series) [facility] Start: 2020 Vaccination for corey n papillomavirus HPV VACCINE ADOL (1 - 3-dose series) [facility] Start: 08-12-2019 PEDS TO ADULT TRANSI TION ANNUAL ASSESSMENT PEDS TO ADULT TRANSITION ANNUAL ASSESSMENT [facility] Start: 2018 Varicella Vaccine (1 of 2 - 13+ 2-dose series) Varicella Vaccine (1 of 2 - 13+ 2-dose series) [facility] Start: 2017 Adult depression screening assessment DEPRESSION SCREENING [facility] Start: 2017 PEDS TO ADULT TRANSI TION INITIAL DISCUSSION PEDS TO ADULT TRANSITION INITIAL DISCUSSION [facility] Start: 08-12-2015 MENINGOCOCCAL B: Consider based on risk (1 of 2 - Risk Bexsero 2-dose series) MENINGOCOCCAL B: Consider based on risk (1 of 2 - Risk Bexsero 2-dose series) [facility] Start: 2014 HPV VACCINE (1 - 2-d ose series) HPV VACCINE (1 - 2-dose series) [facility] Start: 2012 DTaP/Tdap/Td Vaccine (1 - Tdap) DTaP/Tdap/Td Vaccine (1 - Tdap) [facility] Start: 2012 Urine microalbumin profile DTAP,TDAP,TD (1 - Tdap) [facility] Start: 2006 Hepatitis A Vaccine (1 of 2 - 2-dose series) Hepatitis A Vaccine (1 of 2 - 2-dose series) [facility] Start: 2006 MMR (1 of 2 - Standa rd series) MMR (1 of 2 - Standard series) [facility] Start: 2006 MMR Vaccine (1 of 2 - Standard series) MMR Vaccine (1 of 2 - Standard series) [facility] Start: 2006 VARICELLA (1 of 2 - 2-dose childhood series) VARICELLA (1 of 2 - 2-dose childhood series) [facility] Start: 02-10-2006 COVID-19 VACCINE (#1) COVID-19 VACCI NE (#1) [facility] Start: 2005 POLIO (1 of 3 - 4-do se series) POLIO (1 of 3 - 4-dose series) [facility] Start: 2005 HEPATITIS B (1 of 3 - 3-dose series) HEPATITIS B (1 of 3 - 3-dose series) [facility] Start: 2005 Hepatitis B Vaccine (1 of 3 - 3-dose series) Hepatitis B Vaccine (1 of 3 - 3-dose series) [facility] Start: 2005 Hepatitis C screening HEPATITI S C VIRUS SCREENING [facility] Start: 2005 Screening for Chlamy ericka trachomatis GONORRHEA SCREEN [facility] Bacteria identified in Urine by Culture URINE CULTURE Microbiology Routine Urinary frequency 10/18/2022 7:58 PM EDT [facility] Work Phone: End: 05-16-2024 Chlamydia trachomatis+Neisseria gonorrhoeae DNA [Presence] in Urine by RADHA with probe detection [facility] Work Phone: Comment on above: One Time for 1 Occur rences starting 05/16/2024 until 05/16/2024 Payers Date Payer Category Payer Self-pay 2022 Private Health Insurance [id number] 2022 Unknown [id number] 2015 Private Health Insurance [id number] 2005 Unknown [id number] 2005 Unknown [id number] [id number]. [id number] 1972 Unknown [id number] 2.16. [id number] 1972 Unknown [id number] 2.16. [id number] Unknown Unknown [id number] Social History Date Type Detail Facility Start: 10-18-2022 Tobacco smoking status AZIS Tobacco smoking consumption unknown [facility] Start: 2005 Sex Assigned At Not on file [facility] Start: 05-16-2024 Gender identity Not on file [facility] Start: 05-16-2024 History of Social function [facility] How hard is it for you to pay for the very basics like food, housing, medical care, and heating Not hard at all [facility] (I/We) worried whether (my/our) food would run out before (I/we) got money to buy more. Never true [facility] In the past 12 months, was there a time when you were not able to pay the mortgage or rent on time? No [facility] Start: 12-26-2023 Sex Female (finding) [facility] Start: 09-02-2015 Tobacco smoking status NHIS Never smoked tobacco (finding) [facility] Start: 2005 Sex Assigned At Female [facility] Clinical Notes 10-18-2022 to 07-15-2024 Alix Easley, PIG STICKER - 07/15/2024 10:00 AM LetyFatemeh, TAX ATTORNEY - 05/19/2024 8:07 PM ESTGlHayley ortega - 05/17/2024 12:16 AM ESTGleasrenee Hayley - 05/17/2024 12:16 AM EST Note Date [...] agreement with plan. documented in this encounter [facility] 05-19-2024 History of Present illness Narrative Social Work Note Social Work involvement due to Social Work Identified. Reason for Social Work encounter: Barriers/access to healthcare Situation: Patient presents to [facility] () for sore throat on 05/16/24. Media Marketing Specialist (SW) noted patient does not appear to [...] all patient-related activities. documented in this encounter [facility] 05-17-2024 Emergency department Note Patient discharged and instructed to remain NPO and go to [facility]. Patient verbalized understanding. [facility] 05-17-2024 Emergency department Note Patient discharged and instructed to remain NPO and go to [facility]. Patient verbalized understanding. Attending at bedside. Patient states [facility] sent her to the ED for [...] past few weeks. Will transfer to the [facility] ED for further evaluation and care. [facility] Transport Team will be transporting patient to [facility]. Diagnosis and reasons for TRANSFER explained to [...] tests ordered. patient should be contacted at [phone] with results. Pt reports sore throat this morning. Her friend just recently had it. documented in this encounter [facility] 05-17-2024 Emergency department Note Attending at bedside. [facility] 05-16-2024 Emergency department Note Patient states [facility] sent her to the ED for an ultrasound. Patient endorses green/yellowish vaginal discharge, abdominal pain, and fever/chills. Patient states she had an and was prescribed pills for . [facility] 05-16-2024 History of Present illness Narrative Provider Sreedhar Michael notified of abnormal lab result: positive HCG. documented in this encounter [facility] 05-16-2024 Emergency department Note Called transfer report over to [facility] NICOLE Van. [facility] 05-16-2024 Hospital Discharge instructions Ricardo Bojorquez MD - 05/16/2024 10:23 PM EST Please proceed immediately to [facility] for further evaluation in the Emergency Department. documented in this encounter [facility] 05-16-2024 Physician Emergency department Note Provider [...] past few weeks. Will transfer to the [facility] ED for further evaluation and care. [facility] Transport Team will be transporting patient to [facility]. Diagnosis and reasons for TRANSFER explained to [...] Hospital - Level Care : HIGH RISK [facility] Work Phone: 05-16-2024 Emergency department Triage note [...] tests ordered. patient should be contacted at [phone] with results. [facility] 05-16-2024 Emergency department Triage note Pt reports sore throat this morning. Her friend just recently had it. 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 Pt [...] agreement with plan. 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 Pt also reports recent traumatic [...] agreement with plan. 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 Pt [...] with non-zero response should be forwarded to [facility] team) Work and Social Adjustment Scale (WSAS) [...] psychiatric diagnoses: See above Psychiatrist (current): denies qualitative field project manager (current): denies Therapist/Counselor (current): denies TMS/ECT: [...] At All) SOCIAL HISTORY: Pediatric History Patient Parents Rodriguez Obrien (Father) Other Topics Concern Not on file Social History Narrative Not on file Pt's family history is not on file. Childhood: normal. Lives at home with parents and older sister. Current living situation: Currently lives with roommate at [facility] Relationships/support: current relationship with Adonis. Has made several friends on campus. Plays Lacrosse at [facility]. 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 Trauma/abuse/DV history: denies Legal issues/history: denies Strengths: did not assess Caodaism considerations: denies Cultural/ethnic considerations: denies Language spoken [...] None 4. Pt encouraged to communicate via tenXert or call the clinic with worsening symptoms, [...] no Discussed automatic release of notes via [employer] with patient, including potential for proxy access: [x] yes [] no Pt expressed understanding and consented to receiving progress notes via [employer]ap[employer]. Patient and/or patient s family (with consent for adult patient) has participated in developing treatment plan: [x] yes [] no If No, explain: documented in this encounter [facility] 10-20-2022 Miscellaneous Notes Pt's father Don calling and given provider's message below. Rebecca Jang RN Left message for pt to call back. Anne Brantley MA Urine culture did not show an infection. Finish antibiotic and follow up with PCP, urology, or MANAGER INTERNAL for recheck because of blood in the urine. documented in this encounter [facility] 10-18-2022 Note HNO ID: [id number] Author: Elsi Whitaker APRN.CNP Service: ? Author Type: Nurse Practitioner Type: [...] agreeable to treatment plan. Elsi Whitaker APRN.CNP [facility] 10-18-2022 History of Present illness Narrative [...] Elsi Whitaker APRN.CNP documented in this encounter [facility] Evaluation note Diagnosis Urinary frequency- Primary [facility] Diagnosis Adjustment disorder with anxiety- Primary [facility] Adjustment disorder with anxiety- Primary [facility] [place] Diagnosis Vaginal discharge- Primary Leukorrhea, not specified as infective Complication following medical Pelvic pain Unspecified symptom associated with female genital organs documented in this encounter [facility] Diagnosis Adjustment disorder with anxiety- Primary [facility] [place] [facility]No assessment information available [facility] Work Phone: Reason for referral (narrative)No reason for referral information [facility]WP[facility] Work Phone: Summary Purpose Family History No Family History Records FoundNo Family History Records FoundNo Family History Records FoundNo Family History Records FoundNo Family History Records FoundNo Family History Records Found Advance Directives No Advanced Directives Records FoundNo Advanced Directives Records FoundNo Advanced Directives Records FoundNo Advanced Directives Records FoundNo Advanced Directives Records FoundNo Advanced Directives Records Found Chief Complaint and Reason for Visit Chief Complaint Admit Date LABWORK December 17, 2024 3: 27pm Additional Source Comments Source Comments (unrecognize d section and content) In the event this informatio n is protected by the Federal Confidentiality of Alcohol and Drug Abuse Patient Records regulations: The Federal rules restrict any use of the information to criminally investigate or prosecute any alcohol or drug abuse patient.[facility] the event this information is protected by the Federal Confidentiality of Alcohol and Drug Abuse Patient Records regulations: The Federal rules restrict any use of the information to criminally investigate or prosecute any alcohol or drug abuse patient.[facility] Reason for Visit (unrecogniz ed section and content) Reason Comments UTI Burning and frequenc y Reason Comments Results Urine Cx negative Reason Comments Follow-up Reason Comments Anxiety Reason Comments Sore Throat Care Teams (unrecognized sec tion and content) [employer] Relationship Specialty Start Date End Date Arnold Garcia PCP - General Pediatrics 07/07/10 [employer] Relationship Specialty Start Date End Date Arnold Garcia PCP - General Pediatrics 07/07/10 [employer] Relationship Specialty Start Date End Date Evon Diana DO [address] [place] [address] PCP - General Internal Medicine 05/16/24 [employer] Relationship Specialty Start Date End Date Evon Diana DO [address] [place] [address] PCP - General Internal Medicine 05/16/24 Team Status: Active Member Role/Relationship Status Dates Dr. Arnold Garcia MD Family Provider Active Dr. Evon Diana DO Primary Care Provider Active Team Status: Inactive Member Role/Relationship Status Dates Dr. Evon Diana DO Primary Care Provider Active Start: December 17, 2024 End: December 17, 2024 SINAN Noyola Attending Provider Active Start: December 17, 2024 End: December 17, 2024 INFORMATION SOURCE (unrecogn ized section and content) DATE CREATED AUTHOR 10/20/2022 [facility] DATE CREATED AUTHOR AUTHOR'S ORGANIZ ATION 01/15/2023 [facility] DATE CREATED AUTHOR AUTHOR'S ORGANIZ ATION 05/19/2024 [facility] DATE CREATED AUTHOR AUTHOR'S ORGANIZ ATION 05/24/2024 [facility] DATE CREATED AUTHOR AUTHOR'S ORGANIZ ATION 07/16/2024 [facility] DATE CREATED AUTHOR AUTHOR'S ORGANIZ ATION 12/24/2024 [facility] Goals (unrecognized section and content) Goals may be documented in a n alternate section FOR RECORDS PERTAINING TO PATIENTS WHO ARE [...] BE BASED ON THE PRIMARY CLINICAL RECORDS. ip.access [facility]. provides no warranty or guarantee of the accuracy or completeness of information in this document.
[2025-03-22] MEDS: Albuterol 2.5 MG/3 ML VIAL.NEB. INHALATION (10:11)
[2025-03-22 10:49] LABS: Hematocrit 39.0 % (37-47); Hemoglobin 12.9 g/dL (12.0-15.0); Immature Granulocytes Count 0.050 X10^3/uL (0.0-0.0); Mean Corp Hgb Conc 33.1 g/dL (32-36); Mean Corpuscular Volume 81.4 fL (81-99); Mean Platelet Vol. 8.8 fl (6.2-12.0); NRBC Flagged by Analyzer 0 % (0-5); POSITIVE DIFFERENTIAL YES; Platelet Count 263 K/mm3 (150-450); RBC Distribution Width CV 14.8 % (11.6-14.6); RBC Distribution Width SD 44.2 fl (35.1-43.9); Red Blood Count 4.79 M/mm3 (4.2-5.4); White Blood Count 11.9 K/mm3 (4.4-11.0)
--- NOTE | 2025-03-22 10:58 | CPS ---
Pt was 85% on RA. This RT placed pt on a NC at this time. Pt is now 95%
[2025-03-22 11:32] LABS: Anion Gap 11 (5-15); BUN 9 mg/dL (4-19); BUN/Creat Ratio 16.6 RATIO (10-20); Calcium,Total 9.2 mg/dL (7.6-11.0); Carbon Dioxide 23.4 mmol/L (21.0-32.0); Chloride 103 mmol/L (98-108); Estimated Creatinine Clearance 145.40 ml/min (50-250); Glucose 129 mg/dL (70-99); Potassium 3.7 mmol/L (3.3-5.1)
--- NOTE | 2025-03-22 12:26 | HP.PCM.HOS_ITS ---
[facility] - General General Date of Service: 03/22/25 Chief Complaint: Shortness of breath HPI Allan SALMON, is a 19 F who presents with shortness of breath. This patient has a history of asthma and has been doing well up until the past 4 days where she has become more short of breath and using her albuterol and rescue inhalers very frequently. Despite that she has just gotten worse. Presented to the emergency room where she had a chest x-ray that showed a right-sided pleural infiltrate. Patient received doxycycline, prednisone as well as breathing treatments. They ambulated her and she was 85% on room air. She was placed on oxygen. But with her hypoxia, the hospital service was contacted for admission. [ ] [facility] Medical History (Updated 03/22/25 @ 12:[address] Angelo Gutierrez DO) Asthma Home Medications ?Medication ?Instructions ?Recorded ?Last Taken ?Type albuterol sulfate 2.5 mg/3 mL 1 dose inhalation Q4H MS N PRN Sob 09/02/15 Unknown History (0.083 %) solution for nebulization &/Or Wheezing albuterol sulfate 90 mcg/actuation 2 puff inhalation Q 6H PRN PRN Sob 09/02/15 Unknown History aerosol inhaler (Ventolin HFA) &/Or Wheezing Allergy/AdvReac Type Severity Reaction Status Date / Time animal dander Allergy Other Verified 03/22/25 08:27 Seasonal Allergies: Uncoded Allergy NEEDS Verified 03/22/25 08:27 FOLLOW-UP Family History (Updated 03/22/25 @ 12:[address] Angelo Gutierrez DO) Other Asthma Social History (Updated 03/22/25 @ 12:[address] Angelo Gutierrez DO) Smoking Status: Current every day smoker Smokeless tobacco user: other alcohol intake: never substance use type: marijuana ROS ROS Narrative Complains of chest pain. Is coughing which is productive of phlegm. Symptoms that started off with sore throat. Chills but does not know if she had a fever. All review of systems were negative except as mentioned above in the history of present illness and the other review of systems. Vital Signs Vital Signs Vital Signs: 03/22/25 08:27 03/22/25 08:28 03/22/25 08:42 Temperature 37.2 C Temperature Source Temporal Pulse Rate 121 H 115 H Respiratory Rate 16 Respiratory Effort Respiratory Pattern Blood Pressure 125/89 H Blood Pressure Mean 101 Pulse Ox 92 96 Oxygen Delivery Method Room Air Room Air Oxygen Flow Rate (L/min) 03/22/25 08:47 03/22/25 09:05 03/22/25 10:11 Temperature Temperature Source Pulse Rate 116 H 135 H Respiratory Rate 16 16 Respiratory Effort Short of Breath Labored Respiratory Pattern Tachypnea Blood Pressure Blood Pressure Mean Pulse Ox Oxygen Delivery Method Room Air Oxygen Flow Rate (L/min) 03/22/25 10:58 Temperature Temperature Source Pulse Rate Respiratory Rate Respiratory Effort Respiratory Pattern Blood Pressure Blood Pressure Mean Pulse Ox 95 Oxygen Delivery Method Nasal Cannula Oxygen Flow Rate (L/min) 2 Weight Weight: 60.4 kg Body Mass Index (BMI) 22.1 Physical Exam Const Constitutional Narrative: On oxygen. No respiratory distress. No conversational dyspnea. HEENT normocephalic and head/scalp atraumatic Resp normal respiratory effort, no retractions and no use of accessory muscles Cardio Cardio Narrative: Diminished throughout with end expiratory wheezes. GI normal to inspection, nondistended, normoactive bowel sounds, soft to palpation, non-tender and non-distended Extremity normal to inspection, full ROM and no clubbing, cyanosis or edema Neuro Sensorium / Orientation: awake and alert Psych affect normal Results Lab / Micro Data Attestation: I reviewed the patient's lab results. 03/22/25 10:44 03/22/25 10:44 Labs: Laboratory Results - last 24 hr 03/22/25 10:44: WBC 11.9 H, RBC 4.79, Hgb 12.9, Hct 39.0, MCV 81.4, MCH 26.9 L, MCHC 33.1, RDW Std Deviation 44.2 H, RDW Coeff of Ira 14.8 H, Plt Count 263, MPV 8.8, Immature Gran % (Auto) 0.400, Neut % (Auto) 88.7 H, Lymph % (Auto) 4.6 L, Bandera % (Auto) 4.4, Eos % (Auto) 1.6, Baso % (Auto) 0.3, Absolute Neuts (auto) 10.6 H, Absolute Lymphs (auto) 0.55 L, Nucleated RBC % 0, Sodium 137, Potassium 3.7, Chloride 103, Carbon Dioxide 23.4, Anion Gap 11, BUN 9, Creatinine 0.56 L, Estim Creat Clear Calc 145.40, Est GFR (MDRD) Non-Af 135, BUN/Creatinine Ratio 16.6, Glucose 129 H, Calcium 9.2 Imaging Radiology Impression Chest X-Ray 03/22/25 08:42 IMPRESSION: Right lung consolidation, consistent with pneumonia. Reading Location: [facility] Assessment & Plan Assessment/Plan (1) Asthma: PLAN: Acute asthma exacerbation secondary to pneumonia Will start her on methylprednisolone as well as continue with bronchodilators. Likely exacerbated due to underlying pneumonia. Patient pneumonia workup as below. (2) Pneumonia: PLAN: Suspected pneumococcal. Pulmonary toilet. Check urinary antigens for strep and Legionella, check sputum culture, check respiratory panel and COVID/RSV/influenza. Antibiotics with ceftriaxone azithromycin PLAN: Plan Nicotine abuse: Patient vapes. Nicotine patch. VTE prophylaxis with enoxaparin Disposition: To be determined. Sentiment the patient can get onto room air and maintain that and is otherwise overall improving. Unclear timing of when that may occur. Charges/Coding Visit Charges Inpatient E&M: 20265 Init Hosp L2
--- OUTSIDE RECORDS SUMMARY | 2025-03-22 12:32 | XMS RPT_ITS | CCD ---
Author Organization [facility] Care Team Providers Care Expander Name Role Phone Arnold Garcia Primary Care [...] BENTLEY Attending Unavailable SELF, SELF Referring Unavailable FINEKATHY Attending Unavailable SELF, SELF Referring Unavailable FINEKATHY G Attending Unavailable SELF, SELF Referring Unavailable ALIX EASLEY Attending Unavailable SELF, SELF Referring Unavailable Dr. Evon Diana DO Primary Care Provider Cathy Lacy Attending Provider [phone] Cathy Mayorga Attending Unavailable Evon Diana Primary Care Unavailable Allergies Allergy Classification Reported Allergen(s) Allergy Type Date of Onset Reaction(s) Facility (2 sources) Environmental [Other] Propensity to adverse reactions 1 Other: See Comments [facility] (1 source) OTHER; Translations: [OTHER] Propensity to adverse reactions (disorder) 1 [facility] Repository (1 source) TRUMAN FLAVOR; Translations: [TRUMAN FLAVOR] Propensity to adverse reactions to drug (disorder) 7 [facility] Repository (1 source) truman allergenic extract; Translations: [TRUMAN] Drug Allergy [address] [facility] (2 sources) animal dander; Translations: [animal dander] Allergy to substance 6 Other [facility] (2 sources) Seasonal Allergies: Uncoded; Translations: [Seasonal Allergies: Uncoded] Allergy to substance 2 NEEDS FOLLOW-UP [facility] Medications Current Medications Medication Drug Class(es) Dates Sig (Normalized) Sig (Original) [id number] actuat albuterol 0.09 mg/actuat metered dose [...] Comment on above: Take 1 capsule by [facility] twice daily for 5 days. predniSONE 10 [...] Indications: Allergic rhinitis, cause unspecified Use 1 [place] in each nostril once daily. 1 Bottle 11 08/09/2010 Active Comment on above: Use 1 [place] in each nostril once daily. Multivitamins ORAL [...] Interpretation Reference Range Facility [id number] 12-20-2024 [facility]. COMMENT Normal . [facility] Comment on above: Order Comment: 46390 1 VG+ SWAB RMT Result Comment: Test Ordered: [id number] Nuab Vaginitis Plus (VG+) Test(s) 035075- Atopobium vaginae; 538606- BVAB 2; 998740- Megasphaera 1 was developed and its performance characteristics determined by [facility]. It has not been cleared or approved by the Food and Drug Administration. Test(s) 368882-Jbalpel albicans, RADHA; 479967- Ambreen glabrata, RADHA was developed and its [...] Negative =G Reference Range: Negative Performed at: =[address] [id number] Fabric Worker Foreman: Evelin Lord MD, Phone: [phone] Performed at: [address] [id number] Fabric Worker Foreman: Erick Alford PhD, Phone: [phone] Performed By: #### L 3410.9992 #### [facility] [address] [place], [place], [address] Hepatitis Panel Acuteon 08-2 COMMENT Comment Normal . [facility] Comment on above: Result Comment: Not infected with HCV unless early or acute infection is suspected (which may be delayed in an immunocompromised individual), or other evidence exists to indicate HCV infection. Performed at: [address] [id number] Fabric Worker Foreman: Erick Alford PhD, Phone: [phone] Performed By: #### L 3000.0375, L509.8002, L3556.6000 #### [facility] [address] [place], [place], [address] HEP B CORE,IgM Negative Normal Negative [facility] Comment on above: Performed By: #### L 3000.0375, L509.8002, L3890.6006 #### [facility] [address] [place], [place], [address] HEP B SURF AG Negative Normal Negative [facility] Comment on above: Performed By: #### L 3000.0375, L509.8002, L3890.6000 #### [facility] [address] [place], [place], [address] HEP C VIRUS AB Non-Reactive Normal Non Reactive [facility] Comment on above: Performed By: #### L 3000.0375, L509.8002, L3890.6006 #### [facility] [address] [place], [place], [address] HEPATITIS A-IgM Negative Normal Negative [facility] Comment on above: Result Comment: A ne gative anti-HAV IgM result suggests no recent or current HAV infection. Performed By: #### L 3000.0375, L509.8002, L3890.6006 #### [facility] [address] [place], [address] HIVon 12-17-2024 HIV Non-Reactive Normal Nonreactive [facility] Comment on above: Result Comment: Non- Reactive Reactive Repeatedly reactive samples must be confirmed according to CDC recommended confirmatory algorithms. The subresults for either HIVAG or AHIV can be used as an aid in the selection of the confirmation algorithm for reactive samples. Send out specimens with Reactive results to [facility] for confirmation. Order the HIV antibody detection and differentiation: [id number] Performed By: #### L 3000.0375, L509.8002, L3890.6006 #### [facility] [address] [place], [place], [address] No Panel InformationOrdered By: Cathy Mayorga on 12-17-2024 Hepatitis C Antibody Comment Comment . [facility] Comment on above: Not infected with HC V unless early or acute infection issuspected (which may be delayed in an immunocompromisedindividual), or other evidence exists to indicate HCVinfection.Performed at: [address] [id number] Director: Erick Alford PhD, Phone: [phone] HIV (1&2) Antibody Non-Reactive Nonreactive [facility] Comment on above: Non-ReactiveReactive Repeatedly reactive samples must be confirmed according to CDC recommended confirmatory algorithms. The subresults for either HIVAG or AHIV can be used as an aid in the selection of the confirmation algorithm for reactive samples.Send out specimens with Reactive results to [facility] for confirmation.Order the HIV antibody detection and differentiation: [id number] Serum or plasma hepatitis B virus surface antigen detection by immunoassayOrdered By: Cathy Mayorga on 12-17-2024 HBV surface Ag IA Ql Negative Negative [facility] Syphilis Antibodieson 2024 Syphilis Abs Non-Reactive Normal Nonreactive [facility] Comment on above: Performed By: #### L 3000.0375, L509.8002, L3890.6006 #### [facility] [address] [place], [address] BASIC METABOLIC PANELon 05-01 Anion gap [Moles/Vol] 17 mmol/L Normal 10-20 [facility] Comment on above: Order Comment: [facility] Services has implemented the eGFR calculation approach that does not have a coefficient for race that conforms to the NKF-ASN Task Force Recommendations. Performed By: #### 4 6124 #### [facility] [address] [id number] Nazario De Leon M.D. [id number] Calcium [Mass/Vol] 9.0 mg/dL Normal 8.4-10.2 [facility] Comment on above: Order Comment: [facility] has implemented the eGFR calculation approach that does not have a coefficient for race that conforms to the NKF-ASN Task Force Recommendations. Performed By: #### 4 6124 #### [facility] [address] [place], [place] [address] Nazario De Leon M.D. [id number] Chloride [Moles/Vol] 102 mmol/L Normal 98-108 [facility] Comment on above: Order Comment: [facility] Services has implemented the eGFR calculation approach that does not have a coefficient for race that conforms to the NKF-ASN Task Force Recommendations. Performed By: #### 4 6124 #### [facility] [address] [place], [place] [address] Nazario De Leon M.D. [id number] Creatinine [Mass/Vol] 0.45 mg/dL Low 0.50-1.00 [facility] Comment on above: Order Comment: [facility] Services has implemented the eGFR calculation approach that does not have a coefficient for race that conforms to the NKF-ASN Task Force Recommendations. Performed By: #### 4 6124 #### [facility] [address] [address] Nazario De Leon M.D. [id number] EGFR 143 mL/min/1.73 m2 Normal >=60 [facility] Comment on above: Order Comment: [facility] has implemented the eGFR calculation approach that does not have a coefficient for race that conforms to the NKF-ASN Task Force Recommendations. Result Comment: Sierra mated GFR was calculated using the 2020 CKD-EPI creatinine equation. Performed By: #### 4 6124 #### [facility] [address] [id number] Nazario De Leon M.D. [id number] Glucose [Mass/Vol] 90 mg/dL Normal 65-99 [facility] Comment on above: Order Comment: [facility] has implemented the eGFR calculation approach that does not have a coefficient for race that conforms to the NKF-ASN Task Force Recommendations. Performed By: #### 4 6124 #### [facility] [address] [address] Nazario De Leon M.D. [id number] HCO3 (Bld) [Moles/Vol] 21 mmol/L Normal 21-32 [facility] Comment on above: Order Comment: [facility] has implemented the eGFR calculation approach that does not have a coefficient for race that conforms to the NKF-ASN Task Force Recommendations. Performed By: #### 4 6124 #### [facility] [address] [address] Nazario De Leon M.D. [id number] Potassium [Moles/Vol] 3.8 mmol/L Normal 3.5-5.1 [facility] Comment on above: Order Comment: [facility] has implemented the eGFR calculation approach that does not have a coefficient for race that conforms to the NKF-ASN Task Force Recommendations. Performed By: #### 4 6124 #### [facility] [address] [address] Nazario De Leon M.D. [id number] Sodium [Moles/Vol] 136 mmol/L Normal 135-145 [facility] Comment on above: Order Comment: [facility] has implemented the eGFR calculation approach that does not have a coefficient for race that conforms to the NKF-ASN Task Force Recommendations. Performed By: #### 4 6124 #### [facility] [address] [address] Nazario De Leon M.D. [id number] Urea nitrogen [Mass/Vol] 6 mg/dL Low 8-25 [facility] Comment on above: Order Comment: [facility] has implemented the eGFR calculation approach that does not have a coefficient for race that conforms to the NKF-ASN Task Force Recommendations. Performed By: #### 4 6124 #### [facility] [address] [address] Nazario De Leon M.D. [id number] Urea nitrogen/Creatinine [Mass ratio] 13.3 mg/mg Normal 10.0-20.0 [facility] Comment on above: Order Comment: [facility] has implemented the eGFR calculation approach that does not have a coefficient for race that conforms to the NKF-ASN Task Force Recommendations. Performed By: #### 4 6124 #### [facility] [address] [address] Nazario De Leon M.D. [id number] C trach/N gono/T vag Panelon 05-17-2024 C. trachomatis amp. Not detected Normal NODT [facility] Comment on above: Performed By: #### C TGCTP #### [place] [address] Comment Optimal performance is obtained with First Catch urines. Clean catch urine samples have been shown to have reduced sensitivity for the detection of C. trachomatis, N. gonorrhoeae and T. vaginalis using the APTIMA nucleic acid amplification method. Normal [facility] Comment on above: Performed By: #### C TGCTP #### [place] [address] N. gonorrhoeae amp. Not detected Normal NODT [facility] Comment on above: Performed By: #### C TGCTP #### Performed at [address] [address] T. vaginalis amp. Not detected Normal NODT [facility] Comment on above: Performed By: #### C TGC #### [place] [address] CBC WITH AUTO DIFFERENTIALon 05-17-2024 AUTO NRBC 0.0 % Normal [facility] Comment on above: Performed By: #### L [id number] #### [facility] [address] [address] Nazario De Leon M.D. [id number] AUTO NRBC ABS COUNT 0.00 K/mcL Normal 0.00-0.00 [facility] Comment on above: Performed By: #### L [id number] #### [place] [address] [address] Nazario De Leon M.D. [id number] BASOPHILS ABSOLUTE COUNT 0.04 K/mcL Normal 0.00-0.30 [facility] Comment on above: Performed By: #### L [id number] #### [facility] [address] [address] Nazario De Leon M.D. [id number] Basophils/100 WBC (Bld) 0.3 % Normal [facility] Comment on above: Performed By: #### L [id number] #### [facility] [address] [address] Nazario De Leon M.D. [id number] Eosinophils (Bld) [#/Vol] 0.39 10*3/uL Normal 0.00-0.50 [facility] Comment on above: Performed By: #### L [id number] #### [facility] [address] [address] Nazario De Leon M.D. [id number] Eosinophils/100 WBC (Bld) 3.3 % Normal [facility] Comment on above: Performed By: #### L [id number] #### [facility] [address] [address] Nazario De Leon M.D. [id number] Erythrocyte distribution width (RBC) [Ratio] 16.1 % High 11.6-14.8 [facility] Comment on above: Performed By: #### L [id number] #### [facility] [address] [address] Nazario De Leon M.D. [id number] Hematocrit (Bld) [Volume fraction] 33.1 % Low 36.0-46.0 [facility] Comment on above: Performed By: #### L [id number] #### [place] [address] [address] Nazario De Leon M.D. [id number] Hemoglobin (Bld) [Mass/Vol] 10.9 g/dL Low 12.0-16.0 [facility] Comment on above: Performed By: #### L [id number] #### [place] [address] [address] Nazario De Leon M.D. [id number] IG ABSOLUTE 0.03 K/mcL Normal 0.00-0.30 [facility] Comment on above: Performed By: #### Kaila [id number] #### [place] [address] [address] Nazario De Leon M.D. [id number] IG PERCENT 0.30 % Normal [facility] Comment on above: Result Comment: The IG parameter is the percentage of metamyelocytes, myelocytes and promyelocytes. An immature granulocyte count (IG) of 1% or more suggests the possibility of infection, an IG count of 3% is very likely related to an infection. Performed By: #### L [id number] #### [place] [address] [address] Nazario De Leon M.D. [id number] Lymphocytes (Bld) [#/Vol] 1.78 10*3/uL Normal 0.90-4.00 [facility] Comment on above: Performed By: #### L [id number] #### [place] [address] [address] Nazario De Leon M.D. [id number] Lymphocytes/100 WBC (Bld) 15.0 % Normal [facility] Comment on above: Performed By: #### L [id number] #### [place] [address] [address] Nazario De Leon M.D. [id number] MCH (RBC) [Entitic mass] 26.7 pg Normal 25.0-35.0 [facility] Comment on above: Performed By: #### Kaila [id number] #### [facility] [address] [address] Nazario De Leon M.D. [id number] MCV (RBC) [Entitic vol] 81.1 fL Normal 78.0-102.0 [facility] Comment on above: Performed By: #### Kaila [id number] #### [facility] [address] [address] Nazario De Leon M.D. [id number] MEAN CORPUSCULAR HEMOGLOBIN CONC 32.9 g/dL Normal 31.0-37.0 [facility] Comment on above: Performed By: #### Kaila [id number] #### [facility] [address] [address] Nazario De Leon M.D. [id number] Monocytes (Bld) [#/Vol] 1.23 10*3/uL High 0.30-0.90 [facility] Comment on above: Performed By: #### Kaila [id number] #### [facility] [address] [address] Nazario De Leon M.D. [id number] Monocytes/100 WBC (Bld) 10.4 % Normal [facility] Comment on above: Performed By: #### L [id number] #### [facility] [address] [address] Nazario De Leon M.D. [id number] NEUTROPHILS ABSOLUTE COUNT 8.38 K/mcL High 1.70-7.00 [facility] Comment on above: Performed By: #### L [id number] #### [facility] [address] [address] Nazario De Leon M.D. [id number] Neutrophils/100 WBC (Bld) 70.7 % Normal [facility] Comment on above: Performed By: #### L [id number] #### [facility] [address] [address] Nazario De Leon M.D. [id number] Platelet mean volume (Bld) [Entitic vol] 8.8 fL Low 9.4-12.4 [facility] Comment on above: Performed By: #### L [id number] #### [facility] [address] [address] Nazario De Leon M.D. [id number] Platelets (Bld) [#/Vol] 345 10*3/uL Normal 150-400 [facility] Comment on above: Performed By: #### L [id number] #### [facility] [address] [address] Nazario De Leon M.D. [id number] RBC (Bld) [#/Vol] 4.08 10*6/uL Low 4.10-5.10 [facility] Comment on above: Performed By: #### L [id number] #### [facility] [address] [address] Nazario De Leon M.D. [id number] WBC (Bld) [#/Vol] 11.85 10*3/uL High 4.50-11.00 [facility] Comment on above: Performed By: #### L [id number] #### [facility] [address] [address] Nazario De Leon M.D. [id number] CHLAMYDIA/GONORRHOEAE AMPLIF IED RNAon 05-17-2024 CHLAMYDIA/GONORRHOEAE AMPLIFIED RNA CHLAMYDIA TRACHOMATIS AMPLIFIED RNA NEGATIVE NEISSERIA GONORRHOEAE AMPLIFIED RNA NEGATIVE Normal Negative [facility] Comment on above: Performed By: #### L [id number] #### [facility] [address] [place] [address] Dejuan Stweart M.D. [id number] ED Prov Noteon 05-17-2024 ED Prov Note PCP - Ricardo Bojorquez MD [phone] Chief Complaint Patient presents with Abdominal Pain [...] Resource Strain: Low Risk (05/16/2024) Received from [facility] Overall Financial Resource Strain (CARDIA) Difficulty of Paying Living Expenses: Not hard at all Food Insecurity: No Food Insecurity (05/16/2024) Received from [facility] Hunger Vital Sign Worried About Running Out of Food in the Last Year: Never true Ran Out of Food in the Last Year: Never true Transportation Needs: No Transportation Needs (05/16/2024) Received from [facility] PRAPARE - Transportation Lack of Transportation (Medical): No Lack of Transportation (Non-Medical): No Housing Stability: Low Risk (05/16/2024) Received from [facility] Housing Stability Vital Sign Unable to Pay [...] No adnexal masses or tenderness appreciated. Procedures [facility] Measure #254: Ultrasound for [...] All other components within normal limits Narrative: [facility] has implemented the eGFR calculation approach that does not have a coefficient for race that conforms to the NKF-ASN Task Force Recommendations. HCG, BLOOD, QUANTITATIVE - Abnormal; Notable for the following components: hCG Quant 293 (*) All other components within normal limits Narrative: Males and non females: <5 mIU/mL Females during pregn (more content not included)... Normal [facility] HCG, BLOOD, QUANTITATIVEon 0 05-17-2024 HCG, QUANTITATIVE 293 mIU/mL High 0-5 [facility] Comment on above: Order Comment: Males and non females: <5 mIU/mL Females during : 3-4 weeks 9-130 mIU/mL 4-5 weeks 75-2600 mIU/mL 5-6 weeks 850-20,800 mIU/mL 6-7 weeks 4000-100,200 mIU/mL 7-12 weeks 11,500-289,000 mIU/mL 12-16 weeks 18,300-137,000 mIU/mL 16-29 weeks 1,400-53,000 mIU/mL 29-41 weeks 940-60,000 mIU/mL Performed By: #### 4 [id number] #### [facility] [address] [address] Nazario De Leon M.D. [id number] URINALYSISon 05-17-2024 BACTERIA, URINE None Seen Normal None Seen [facility] Comment on above: Order Comment: Micro scopic examination is performed on all urinalysis samples and only positive findings are reported. The test for blood on the chemical analytic portion of urinalysis may also be positive due to hemoglobinuria and myoglobinuria and if red blood cells are present they are quantified by microscopic examination. Performed By: #### 4 6625 #### [facility] [address] [address] Nazario De Leon M.D. [id number] BILIRUBIN, URINE Negative Normal Negative [facility] Comment on above: Order Comment: Micro scopic examination is performed on all urinalysis samples and only positive findings are reported. The test for blood on the chemical analytic portion of urinalysis may also be positive due to hemoglobinuria and myoglobinuria and if red blood cells are present they are quantified by microscopic examination. Performed By: #### 4 6625 #### [facility] [address] [address] Nazario De Leon M.D. [id number] BLOOD, URINE Large Abnormal Negative [facility] Comment on above: Order Comment: Micro scopic examination is performed on all urinalysis samples and only positive findings are reported. The test for blood on the chemical analytic portion of urinalysis may also be positive due to hemoglobinuria and myoglobinuria and if red blood cells are present they are quantified by microscopic examination. Performed By: #### 4 6625 #### [facility] [address] [address] Nazario De Leon M.D. [id number] Clarity (U) Clear Normal Clear [facility] Comment on above: Order Comment: Micro scopic examination is performed on all urinalysis samples and only positive findings are reported. The test for blood on the chemical analytic portion of urinalysis may also be positive due to hemoglobinuria and myoglobinuria and if red blood cells are present they are quantified by microscopic examination. Performed By: #### 4 6625 #### [facility] [address] [address] Nazario De Leon M.D. [id number] Color (U) Yellow Normal Colorless, Yellow [facility] Comment on above: Order Comment: Micro scopic examination is performed on all urinalysis samples and only positive findings are reported. The test for blood on the chemical analytic portion of urinalysis may also be positive due to hemoglobinuria and myoglobinuria and if red blood cells are present they are quantified by microscopic examination. Performed By: #### 4 6625 #### [facility] [address] [address] Nazario De Leon M.D. [id number] Glucose Ql (U) Negative Normal Negative, >=1000 [facility] Comment on above: Order Comment: Micro scopic examination is performed on all urinalysis samples and only positive findings are reported. The test for blood on the chemical analytic portion of urinalysis may also be positive due to hemoglobinuria and myoglobinuria and if red blood cells are present they are quantified by microscopic examination. Performed By: #### 4 6625 #### [facility] [address] [place] [address] Nazario De Leon M.D. [id number] Ketones Ql (U) Negative Normal Negative Valor [...] examination. Performed By: #### 4 [id number] #### [facility] [address] [place] [id number] Nazario De Leon M.D. [id number] Leukocyte esterase Test strip Ql (U) Small Abnormal Negative [facility] Comment on above: Order Comment: Micro scopic examination is performed on all urinalysis samples and only positive findings are reported. The test for blood on the chemical analytic portion of urinalysis may also be positive due to hemoglobinuria and myoglobinuria and if red blood cells are present they are quantified by microscopic examination. Performed By: #### 4 [id number] #### [facility] [address] [place] [address] Nazario De Leon M.D. [id number] MUCUS, URINE Rare Normal None Seen, [facility] Comment on above: Order Comment: Micro scopic examination is performed on all urinalysis samples and only positive findings are reported. The test for blood on the chemical analytic portion of urinalysis may also be positive due to hemoglobinuria and myoglobinuria and if red blood cells are present they are quantified by microscopic examination. Performed By: #### 4 [id number] #### [facility] [address] [place] [address] Nazario De Leon M.D. [id number] NITRITE, URINE Negative Normal Negative [facility] [...] examination. Performed By: #### 4 [id number] #### [facility] [address] [place] [id number] Nazario De Leon M.D. [id number] pH (U) 6.5 [pH] Normal 5.0-7.0 [facility] Comment on above: Order Comment: Micro scopic examination is performed on all urinalysis samples and only positive findings are reported. The test for blood on the chemical analytic portion of urinalysis may also be positive due to hemoglobinuria and myoglobinuria and if red blood cells are present they are quantified by microscopic examination. Performed By: #### 4 [id number] #### [facility] [address] [place] [id number] Nazario De Leon M.D. [id number] PROTEIN, URINE Negative Normal Negative [facility] [...] examination. Performed By: #### 4 [id number] #### [facility] [address] [place] [id number] Nazario De Leon M.D. [id number] RBC, URINE < Normal 0-3 [facility] Comment on above: Order Comment: Micro scopic examination is performed on all urinalysis samples and only positive findings are reported. The test for blood on the chemical analytic portion of urinalysis may also be positive due to hemoglobinuria and myoglobinuria and if red blood cells are present they are quantified by microscopic examination. Performed By: #### 4 [id number] #### [facility] [address] [place] [id number] Nazario De Leon M.D. [id number] Specific gravity (U) [Rel density] 1.012 Normal 1.005-1.025 [facility] Comment on above: Order Comment: Micro scopic examination is performed on all urinalysis samples and only positive findings are reported. The test for blood on the chemical analytic portion of urinalysis may also be positive due to hemoglobinuria and myoglobinuria and if red blood cells are present they are quantified by microscopic examination. Performed By: #### 4 [id number] #### [facility] [address] [place] [id number] Nazario De Leon M.D. [id number] SQUAMOUS EPITHELIAL 2 /hpf Normal 0-4 [facility] Comment on above: Order Comment: Micro scopic examination is performed on all urinalysis samples and only positive findings are reported. The test for blood on the chemical analytic portion of urinalysis may also be positive due to hemoglobinuria and myoglobinuria and if red blood cells are present they are quantified by microscopic examination. Performed By: #### 4 [id number] #### [facility] [address] [place] [id number] Nazario De Leon M.D. [id number] UROBILINOGEN, URINE <2.0 Normal <2.0 [facility] Comment on above: Order Comment: Micro scopic examination is performed on all urinalysis samples and only positive findings are reported. The test for blood on the chemical analytic portion of urinalysis may also be positive due to hemoglobinuria and myoglobinuria and if red blood cells are present they are quantified by microscopic examination. Performed By: #### 4 [id number] #### [facility] [address] [place], [place] [address] Nazario De Leon M.D. [id number] WBC LM.HPF (Urine sed) [#/Area] 2 /[HPF] Normal 0-5 [facility] Comment on above: Order Comment: Micro scopic examination is performed on all urinalysis samples and only positive findings are reported. The test for blood on the chemical analytic portion of urinalysis may also be positive due to hemoglobinuria and myoglobinuria and if red blood cells are present they are quantified by microscopic examination. Performed By: #### 4 [id number] #### [facility] [address] [place], [place] [address] Nazario De Leon M.D. [id number] US PELVIC TRANSABDOMINAL AND TRANSVAGINAL WITH COLOR [...] Sac: Not present. Embryo(<11wk)/Fetus(> =11wk): Not present. [place]-Rump Length: Not measured. Rate of Cardiac Activity [...] imaging as indicated. 2. Normal bilateral ovaries. [employer]version[employer] Workstation ID: [id number] Dictated by: MIGUEL ANGEL OMER on MonMay 17, 2024 2:29:36 AM EST Transcribed by: MESSI BENAVIDEZ on MonMay 17, 2024 2:42:35 AM EST Finalized by: MIGUEL ANGEL OMER on MonMay 17, 2024 6:20:20 AM EST Normal [facility] Comment on above: Order Comment: [...] Cells Seen Abnormal No Clue Cells Seen [facility] Comment on above: Performed By: #### 4 [id number] #### [facility] [address] [place] [address] Nazario De Leon M.D. [id number] C trach/N gono/T vag Panelon 05-16-2024 Specimen Description Urine Normal [place] [facility] Comment on above: Performed By: #### C TGCTP #### [place] [address] HCG ( test) Qlon HCG ( test) Ql (U) Positive Abnormal Negative [facility] Interpretation and review of laboratory results Abnormal [facility] Service comment 40 (Unsp spec) [Interp] First morning urine is the specimen of choice for urine test. False negative results can occur when random urine specimens are tested. A serum test is recommended if results do not correlate with the patient's clinical condition. [facility] POC RAPID MOL GROUP A STREP, THROATon 05-16-2024 S. pyogenes DNA RADHA+probe Ql (Throat) Not detected Not Detected [facility] Comment on above: This test detects nu [...] the performance characteristics have been verified by [facility] affiliated laboratories. POC Rpd Mol Grp A Strep,Thro aton 05-16-2024 POC Rpd Mol Grp A Strep,Throat Normal NODT [facility] Comment on above: Result Comment: Not Detected [...] the performance characteristics have been verified by [facility] affiliated laboratories. POCT HCG, Urine Qualitativeo n 05-16-2024 Beta HCG ( test) Ql (U) Positive Abnormal NEG [facility] Comment: First morning urine is the specimen of choice for urine test. False negative results can occur when random urine specimens are tested. A serum test is recommended if results do not correlate with the patient's clinical condition. Normal [facility] POCT Urinalysis, Strip Onlyo n 05-16-2024 Appearance (U) Clear Normal [facility] Bilirubin, Urine Strip Negative [facility]ucose, [facility]rine Strip Negative Normal [facility]G [place] [facility] Ketone, Urine Strip Negative Normal NEG [facility] Leukocyte esterase, Ur Strip Negative Normal NEG [facility] Nitrite, Urine Strip Negative Normal NEG [place] [facility] Occult blood, Urine Strip Negative Normal NEG [facility] pH, Urine Strip 7.5 Normal 4.5-8.0 [facility] Protein, Urine Strip Negative Normal NEG [place] [facility] Specific [place], Urine Strip 1.020 Normal 1.007-1.030 [facility] Specimen Color Yellow Normal [facility] Urobilinogen (U) [Mass/Vol] 0.2 mg/dL Normal <1.1 [facility] S. pyogenes DNA RADHA+probe Ql (Throat)on 05-16-2024 [facility] Urinalysis dipstick panel Au to test strip (U)on 05-16-2024 Bilirubin Ql (U) Negative Negative [facility] Color (U) Yellow [facility] Glucose Ql (U) Negative Negative mg/dL [facility] Ketones (U) [Mass/Vol] Negative Negative mg/d L [facility] Leukocyte esterase Auto test strip Ql (U) Negative Negative [facility] Nitrite Auto test strip Ql (U) Negative Negative [facility] pH (U) 7.5 [pH] 4.5 - 8.0 [facility] Protein (U) [Mass/Vol] Negative Negative mg/d L [facility] RBC (U) [#/Vol] Negative Negative [facility] Specific gravity (U) [Rel density] 1.020 1.007 - 1.030 [facility] Urobilinogen Qn (U) 0.2 mg/dL NINF - 1 .1 mg/dL [facility] HEMOGLOBIN S SCREEN FOR ATHL ETESon 12-26-2023 HGB Solubility Screen Negative Normal Negative [facility] Comment on above: Performed By: #### L [id number] #### [facility] (DEFAULT) [address] [place] [address] Progress Noteon 01-13-2023 Customer Agent Authentication Interface Message Text Patient ID: Rosario [...] Activities & Sports: 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 Normal [facility] Ulices 10-20-2022 SAMMY Telephone (UCWSTR) ROSARIO OBRIEN ([id number]) 5 F Date Time Provider Department 10/20/22 JORGE SERRANO During your visit today, we recorded the following information about you: Jorge Serrano MD 10/20/2022 7:19 AM Signed Urine culture did not show an infection. Finish antibiotic and follow up with PCP, urology, or BRAKE ASSEMBLER for recheck because of blood in the [...] 50 mcg/Actuation NASAL nasal spray Use 1 [place] in each nostril once daily. - triamcinolone acetonide 0.1 % TOPICAL ointment Apply to affected area twice daily. As needed to areas of areas eczema flare-up. Avoid use on the face. Problem List As Of Date: 10/20/2022 (None) Encounter Status:Closed by REBECCA JANG on 10/20/22 Normal [facility] Bacteria Ur Culton 3 Bacteria identified Cx Nom (U) CULTURE, URINE: No growth (<1,000 CFU/ml) Normal [facility] Comment on above: Performed By: #### 6 30-4 #### [facility] CLIA [id number] [address] [place] [address] OF [facility] CNOVon 10-18-2022 CNOV Office Visit (UCWSTR ) ROSARIO OBRIEN ([id number]) 5 F Date Time Provider Department 10/18/22 [...] Patient agreeable to treatment plan. Elsi Whitaker APRN.MATRIX BATH ATTENDANT Referring Provider: SELF [200] Allergies As of Date: 10/18/2022 Noted Allergy Reaction Environmental [Other] 08/09/2010 14 - Other: See Comments Comments: Cats, Dogs, Dust Mites, Molds, Weeds Date Reviewed: 10/18/2022 Reviewed by: Anatoliy Lal Ma - Fully Assessed Reason for Visit: UTI [116] Cmt: Burning and frequency Primary Visit Diagnosis:Urinary frequency [R35.0] Order(s):UA DIP, URINE (POC) [5598632] Order #: [id number]. #:[id number] URINE CULTURE [SQURCUL] Order #: [id number]. #:[id number] nitrofurantoin monohydrate and macrocrystal (MACROBID) 100 mg [...] 50 mcg/Actuation NASAL nasal spray Use 1 [place] in each nostril once daily. - triamcinolone [...] Status:Closed by ELSI WHITAKER on 10/18/22 Normal [facility] UA DIP, URINE (POC)on 2022 BILIRUBIN UA (POCT) Negative Negative [facility] CLARITY UA (POCT) Slightly Cloudy Cl [facility] COLOR UA (POCT) Other [facility] GLUCOSE UA (POCT) Negative Negative mg/dL [facility] HEMOGLOBIN/BLOOD UA (POCT) Moderate Abnormal Negative [facility] KETONE UA (POCT) Negative Negative mg/dL [facility] LEUKOCYTES UA (POCT) Trace Abnormal Negative [facility] NITRITE UA (POCT) Negative Negative [facility] PH UA (POCT) 7.0 4.5 - 8.0 [facility] Protein Ql (U) Trace Abnormal Negative mg/dL [facility] SPECIFIC GRAVITY UA (POCT) 1.025 1.005 - 1.030 [facility] UROBILINOGEN UA (POCT) 0.2 E.U./dL Normal E.U./ dL [facility] Progress Noteon 08-15-2022 Customer Agent Authentication Interface Message Text Patient ID: Rosario [...] our office- recommended pt be seen by negative developer if wanting allergy shots. Offered referral, [facility] [...] adenopathy present. Neurological: She is alert. Normal [facility] Vital Signs Date Time Vital Sign Value Performing Clinician Facility 05-16-2024 22:55-0500 Body temperature 98.71 [degF] Ricardo Bojorquez MD Work Phone: [facility] 05-16-2024 22:55-0500 Diastolic blood pressure 85 mm[Hg] Ricardo Bojorquez MD Work Phone: [facility] 05-16-2024 22:55-0500 Heart rate 110 /min Ricardo Bojorquez MD Work Phone: [facility] 05-16-2024 22:55-0500 Respiratory rate 16 /min Ricardo Bojorquez MD Work Phone: [facility] 05-16-2024 22:55-0500 SaO2% (BldA) [Mass fraction] 98 % Ricardo Bojorquez MD Work Phone: [facility] 05-16-2024 22:55-0500 Systolic blood pressure 129 mm[Hg] Ricardo Bojorquez MD Work Phone: [facility] 05-16-2024 21:20-0500 Body weight 63.1 kg Ricardo Bojorquez MD Work Phone: [facility] 10-18-2022 19:52-0400 Body temperature 97.7 [degF] Elsi Older CITRIX ARCHITECT.MATRIX BATH ATTENDANT Work Phone: [facility] 10-18-2022 19:52-0400 Body weight 60.33 kg Elsi Older CITRIX ARCHITECT.MATRIX BATH ATTENDANT Work Phone: [facility] 10-18-2022 19:52-0400 Diastolic blood pressure 64 mm[Hg] Elsi Older CITRIX ARCHITECT.MATRIX BATH ATTENDANT Work Phone: [facility] 10-18-2022 19:52-0400 Heart rate 78 /min Elsi Older CITRIX ARCHITECT.MATRIX BATH ATTENDANT Work Phone: [facility] 10-18-2022 19:52-0400 Respiratory rate 14 /min Elsi Older CITRIX ARCHITECT.MATRIX BATH ATTENDANT Work Phone: [facility] 10-18-2022 19:52-0400 Systolic blood pressure 104 mm[Hg] Elsi Older CITRIX ARCHITECT.MATRIX BATH ATTENDANT Work Phone: [facility] Encounters Encounter Date Encounter Type Care Provider Facility Start: 12-17-2024 End: 12-17-[address] Evon Diana DO Work Phone: -[facility] Start: 12-17-2024 End: 12-17-2024 Patient encounter procedure Cathy Mayorga RAIL ASSEMBLER-C -[facility] Start: 12-17-2024 End: 12-17-2024 ambulatory Cathy Baezpramod Facility:[facility] Start: 07-15-2024 End: 07-15-2024 Patient encounter procedure Alix MILLRE Work Phone: [facility] Comment on above: Adjustment disorder with anxiety (Primary Dx) Start: 07-15-2024 ambulatory ALIX Lorenzana lity:[facility] Start: 05-19-2024 End: 05-19-2024 Documentation procedure Fatemeh Medellinfernandokareem DRILLER MULTIPLE SPINDLE Work Phone: Urgent [facility] Main Comment on above: Social Work Note Start: 05-17-2024 End: 05-17-2024 Emergency department patient visit RICARDO BOJORQUEZ [facility] Start: 05-16-2024 End: 05-17-2024 Emergency department patient visit Ricardo Bojorquez MD Work Phone: Emergency Department Main [place] Comment on above: Vaginal discharge (P rimary Dx); Complication following medical ; Pelvic pain Start: 04-03-2024 End: 04-03-2024 Patient encounter procedure Kathy Bentley REPAIR CAMERAMAN Work Phone: [facility] Comment on above: Adjustment disorder with anxiety (Primary Dx) Start: 04-03-2024 ambulatory KATHY G FINE Facilit y:[facility] Start: 03-22-2024 End: 03-22-2024 Patient encounter procedure Kathy Bentley REPAIR CAMERAMAN Work Phone: [employer] Comment on above: Adjustment disorder with anxiety (Primary Dx) Start: 03-22-2024 ambulatory KATHY G FINE Facilit y:[facility] Start: 03-13-2024 ambulatory KATHY G FINE Facilit y:[facility] Start: 03-13-2024 End: 03-13-2024 Patient encounter procedure Kathy Bentley REPAIR CAMERAMAN Work Phone: [employer] Comment on above: Adjustment disorder with anxiety (Primary Dx) Start: 01-13-2023 End: 01-13-2023 ambulatory ARNOLD GARCIA [facility] Start: 10-20-2022 Telephone encounter Jorge Keith MD Work Phone: [facility] Comment on above: Results (Urine Cx ne gative) Start: 10-18-2022 End: 10-18-2022 ambulatory ARNOLD RANDHAWA GARCIA Facility:[facility] Start: 10-18-2022 End: 10-18-2022 Patient encounter procedure Elsi Older CITRIX ARCHITECT.MATRIX BATH ATTENDANT Work Phone: [facility] Comment on above: Urinary frequency (P rimary Dx) Start: 08-15-2022 End: 08-15-2022 ambulatory MARTÍNEZ Hightower CLAUDIA [facility] Procedures Date Procedure Procedure Detail Performing [...] on above: Test Ordered: [id number] Nuab Vaginitis [facility] (VG+)Test(s) 866097- Atopobium vaginae; 219463- BVAB 2;709076- Megasphaera 1was developed and its performance characteristicsdetermined by [facility]. It has not been cleared or approvedby the Food and Drug Administration.Test(s) 262822-Emhwmrr albicans, RADHA; 814365-Fhptvhz glabrata, NAAwas developed and its performance characteristicsdetermined [...] 3-6: Indicates the presence of BV.Ambreen albicans, ARDHA Positive [A ] =G Reference Range: NegativeCandida glabrata, RADHA Negative =G Reference Range: NegativeTrich vag by RADHA Negative =G Reference Range: NegativeChlamydia trachomatis, RADHA Negative =G Reference Range: NegativeNeisseria gonorrhoeae, RADHA Negative =G Reference Range: NegativePerformed at: =G - [facility] [id number] Director: Evelin Lord MD, Phone: [phone] at: - LabcoJulie [place] [id number] [place], [place] [id number] Director: Erick Alford PhD, Phone: [phone] Start: 05-16-2024 Choriogonadotropin ( test) [Presence] in Serum or Plasma Doctor Not On File Work Phone: Start: 05-16-2024 Urinalysis dipstick panel - Urine by Automated test strip Doctor Not On File Work Phone: Start: 05-16-2024 Streptococcus pyogenes DNA [Presence] in Throat by RADHA with probe detection Doctor Not On File Work Phone: Start: 10-18-2022 Urnls dip stick/tablet rgnt auto w/o microscopy Lesley Madison APRN.MATRIX BATH ATTENDANT Work Phone: Plan of Treatment Date Care Activity Detail Author Start: 12-09-2027 Tetanus vaccination TETANUS [facility] Start: 04-03-2024 End: 04-03-2024 Patient encounter procedure 04/03/2024 2:00 PM EST Office Visit [facility] [address] [place] [phone] Kathy Bentley LISW [address] [place] [phone] [facility] Start: 03-22-2024 End: 03-22-2024 Patient encounter procedure 03/22/2024 11:00 AM EST Office Visit [facility] [address] [place] [phone] Kathy Bentley LISW [address] [place] [phone] [facility] Start: 12-31-2023 COVID-19 VACCINE ( season) COVID-19 VACCINE ( season) [facility] Start: 12-31-2023 Influenza vaccination INFLUENZA VACC INE (#1) [facility] Start: 12-30-2022 Influenza vaccination INFLUENZ A (Season Ended) [facility] Start: 2021 Meningococcal ACWY Vaccine (1 - 2-dose series) Meningococcal ACWY Vaccine (1 - 2-dose series) [facility] Start: 2021 Meningococcal B Vacc ine (1 of 2 - Standard) Meningococcal B Vaccine (1 of 2 - Standard) [facility] Start: 2021 MENINGOCOCCAL CONJUG ATE (1 - 2-dose series) MENINGOCOCCAL CONJUGATE (1 - 2-dose series) [facility] Start: 2021 Screening for Chlamy ericka trachomatis CHLAMYDIA SCREEN [facility] Start: 2020 CHLAMYDIA SCREENING (<18) CHLAMYDIA SCREENING (<18) [facility] Start: 2020 GC (GONORRHEA) SCREE JACQUELYN (<18) GC (GONORRHEA) SCREENING (<18) [facility] Start: 2020 HIV screening HIV SCREENING DISCUSSION [facility] Start: 2020 HPV Vaccine (1 - 3-d ose series) HPV Vaccine (1 - 3-dose series) [facility] Start: 2020 Vaccination for corey n papillomavirus HPV VACCINE ADOL (1 - 3-dose series) [facility] Start: 08-12-2019 PEDS TO ADULT TRANSI TION ANNUAL ASSESSMENT PEDS TO ADULT TRANSITION ANNUAL ASSESSMENT [facility] Start: 2018 Varicella Vaccine (1 of 2 - 13+ 2-dose series) Varicella Vaccine (1 of 2 - 13+ 2-dose series) [facility] Start: 2017 Adult depression screening assessment DEPRESSION SCREENING [facility] Start: 2017 PEDS TO ADULT TRANSI TION INITIAL DISCUSSION PEDS TO ADULT TRANSITION INITIAL DISCUSSION [facility] Start: 08-12-2015 MENINGOCOCCAL B: Consider based on risk (1 of 2 - Risk Bexsero 2-dose series) MENINGOCOCCAL B: Consider based on risk (1 of 2 - Risk Bexsero 2-dose series) [facility] Start: 2014 HPV VACCINE (1 - 2-d ose series) HPV VACCINE (1 - 2-dose series) [facility] Start: 2012 DTaP/Tdap/Td Vaccine (1 - Tdap) DTaP/Tdap/Td Vaccine (1 - Tdap) [facility] Start: 2012 Urine microalbumin profile DTAP,TDAP,TD (1 - Tdap) [facility] Start: 2006 Hepatitis A Vaccine (1 of 2 - 2-dose series) Hepatitis A Vaccine (1 of 2 - 2-dose series) [facility] Start: 2006 MMR (1 of 2 - Standa rd series) MMR (1 of 2 - Standard series) [facility] Start: 2006 MMR Vaccine (1 of 2 - Standard series) MMR Vaccine (1 of 2 - Standard series) [facility] Start: 2006 VARICELLA (1 of 2 - 2-dose childhood series) VARICELLA (1 of 2 - 2-dose childhood series) [facility] Start: 02-10-2006 COVID-19 VACCINE (#1) COVID-19 VACCI NE (#1) [facility] Start: 2005 POLIO (1 of 3 - 4-do se series) POLIO (1 of 3 - 4-dose series) [facility] Start: 2005 HEPATITIS B (1 of 3 - 3-dose series) HEPATITIS B (1 of 3 - 3-dose series) [facility] Start: 2005 Hepatitis B Vaccine (1 of 3 - 3-dose series) Hepatitis B Vaccine (1 of 3 - 3-dose series) [facility] Start: 2005 Hepatitis C screening HEPATITI S C VIRUS SCREENING [facility] Start: 2005 Screening for Chlamy ericka trachomatis GONORRHEA SCREEN [facility] Bacteria identified in Urine by Culture URINE CULTURE Microbiology Routine Urinary frequency 10/18/2022 7:58 PM EDT [facility] [place] Work Phone: End: 05-16-2024 Chlamydia trachomatis+Neisseria gonorrhoeae DNA [Presence] in Urine by RADHA with probe detection [facility] Work Phone: Comment on above: One Time for 1 Occur rences starting 05/16/2024 until 05/16/2024 Payers Date Payer Category Payer Self-pay 2022 Private Health Insurance [id number] 2022 Unknown [id number] 2015 Private Health Insurance [id number] 2005 Unknown [id number] 2.16. [id number] 2005 Unknown [id number] 2.16. [id number] 1972 Unknown [id number] 2.16. [id number] 1972 Unknown [id number] 2.16. [id number] Unknown Unknown [id number] Social History Date Type Detail Facility Start: 10-18-2022 Tobacco smoking status VAIS Tobacco smoking consumption unknown [facility] Start: 2005 Sex Assigned At Not on file [facility] Start: 05-16-2024 Gender identity Not on file [facility] Start: 05-16-2024 History of Social function [facility] How hard is it for you to pay for the very basics like food, housing, medical care, and heating Not hard at all [facility] (I/We) worried whether (my/our) food would run out before (I/we) got money to buy more. Never true [facility] In the past 12 months, was there a time when you were not able to pay the mortgage or rent on time? No [facility] Start: 12-26-2023 Sex Female (finding) [facility] Start: 09-02-2015 Tobacco smoking status NHIS Never smoked tobacco (finding) [facility] Start: 2005 Sex Assigned At Female W [facility] Clinical Notes 10-18-2022 to 07-15-2024 Alix Easley, REPAIR CAMERAMAN - 07/15/2024 10:00 AM LetyFatemeh, DRILLER MULTIPLE SPINDLE - 05/19/2024 8:07 PM ESTGlHayley ortega - [...] agreement with plan. documented in this encounter [facility] 05-19-2024 History of Present illness Narrative Social Work Note Social Work involvement due to Social Work Identified. Reason for Social Work encounter: Barriers/access to healthcare Situation: Patient presents to [facility] () for sore throat on 05/16/24. Lna (SW) noted patient does not appear to [...] instructed to remain NPO and go to [facility]. Patient verbalized understanding. [facility] 05-17-2024 Emergency department Note Patient discharged and instructed to remain NPO and go to [facility]. Patient verbalized understanding. Attending at bedside. Patient states [facility] sent her to the ED for an [...] past few weeks. Will transfer to the [facility] ED for further evaluation and care. [facility] Transport Team will be transporting patient to [facility]. Diagnosis and reasons for TRANSFER explained to [...] tests ordered. patient should be contacted at [phone] with results. Pt reports sore throat this morning. Her friend just recently had it. documented in this encounter [facility] 05-17-2024 Emergency department Note Attending at bedside. [facility] 05-16-2024 Emergency department Note Patient states [facility] sent her to the ED for an ultrasound. Patient endorses green/yellowish vaginal discharge, abdominal pain, and fever/chills. Patient states she had an and was prescribed pills for . [facility] 05-16-2024 History of Present illness Narrative Provider Sreedhar Michael notified of abnormal lab result: positive HCG. documented in this encounter [facility] 05-16-2024 Emergency department Note Called transfer report over to [facility] NICOLE Van. [facility] 05-16-2024 Hospital Discharge instructions Ricardo Bojorquez MD - 05/16/2024 10:23 PM EST Please proceed immediately to [facility] for further evaluation in the Emergency Department. documented in this encounter [facility] 05-16-2024 Physician Emergency department Note Provider Note [...] past few weeks. Will transfer to the [facility] ED for further evaluation and care. [facility] Transport Team will be transporting patient to [facility]. Diagnosis and reasons for TRANSFER explained to [...] Hospital - Level Care : HIGH RISK [facility] Work Phone: 05-16-2024 Emergency department Triage note [...] tests ordered. patient should be contacted at [phone] with results. [facility] 05-16-2024 Emergency department Triage note Pt reports sore throat this morning. Her friend just recently had it. 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 Pt [...] agreement with plan. 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 Pt [...] agreement with plan. 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 Pt [...] with non-zero response should be forwarded to [facility] team) Work and Social Adjustment Scale [...] psychiatric diagnoses: See above Psychiatrist (current): denies manufacturing finance manager (current): denies Therapist/Counselor (current): denies TMS/ECT: [...] situation: Currently lives with roommate at [facility] Relationships/support: current relationship with Adonis. Has made several friends on campus. Plays Lacrosse at [facility]. Education: Business/[employer]eting [employer] 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 Trauma/abuse/DV history: denies Legal issues/history: denies Strengths: did not assess Rastafari considerations: denies Cultural/ethnic considerations: denies Language spoken [...] None 4. Pt encouraged to communicate via [employer] or call the clinic with worsening symptoms, [...] no Discussed automatic release of notes via [place] with patient, including potential for proxy access: [x] yes [] no Pt expressed understanding and consented to receiving progress notes via [place]. Patient and/or patient s family (with consent for adult patient) has participated in developing treatment plan: [x] yes [] no If No, explain: documented in this encounter [facility] 10-20-2022 Miscellaneous Notes Pt's father Don calling and given provider's message below. Rebecca Jang RN Left message for pt to call back. Anne Brantley MA Urine culture did not show an infection. Finish antibiotic and follow up with PCP, urology, or BRAKE ASSEMBLER for recheck because of blood in the urine. documented in this encounter [facility] 10-18-2022 Note HNO ID: [id number] Author: Elsi Whitaker APRN.CNP Service: ? Author [...] agreeable to treatment plan. Elsi Whitaker APRN.CNP [facility] 10-18-2022 History of Present illness Narrative [...] Elsi Whitaker APRN.CNP documented in this encounter [facility] Evaluation note Diagnosis Urinary frequency- Primary [facility] Diagnosis Adjustment disorder with anxiety- Primary [facility] Adjustment disorder with anxiety- Primary [facility] Diagnosis Vaginal discharge- Primary Leukorrhea, not specified as infective Complication following medical Pelvic pain Unspecified symptom associated with female genital organs documented in this encounter [facility] Diagnosis Adjustment disorder with anxiety- Primary [facility] noteNo assessment information available [facility] Work Phone: Reason for referral (narrative)No reason for referral information [facility]WA[facility]: Summary Purpose Family History [...] or prosecute any alcohol or drug abuse patient.[facility] the event this information is protected by the Federal Confidentiality of Alcohol and Drug Abuse Patient Records regulations: The Federal rules restrict any use of the information to criminally investigate or prosecute any alcohol or drug abuse patient.[facility] Reason for Visit (unrecogniz ed section and content) Reason Comments UTI Burning and frequenc y Reason Comments Results Urine Cx negative Reason Comments Follow-up Reason Comments Anxiety Reason Comments Sore Throat Care Teams (unrecognized sec tion and content) Expander Relationship Specialty Start Date End Date Arnold Garcia PCP - General Pediatrics 07/07/10 Expander Relationship Specialty Start Date End Date Arnold Garcia PCP - General Pediatrics 07/07/10 Expander Relationship Specialty Start Date End Date Evon Diana DO [address] [place] [address] PCP - General Internal Medicine 05/16/24 Expander Relationship Specialty Start Date End Date Evon Diana DO [address] [place] [address] PCP - General Internal Medicine 05/16/24 Team [...] section and content) DATE CREATED AUTHOR 10/20/2022 [facility] DATE CREATED AUTHOR AUTHOR'S ORGANIZ ATION 01/15/2023 [facility] DATE CREATED AUTHOR AUTHOR'S ORGANIZ ATION 05/19/2024 [facility] DATE CREATED AUTHOR AUTHOR'S ORGANIZ ATION 05/24/2024 [facility] DATE CREATED AUTHOR AUTHOR'S ORGANIZ ATION 07/16/[address] [facility] DATE CREATED AUTHOR AUTHOR'S ORGANIZ ATION 12/24/2024 [facility] Goals (unrecognized section and content) Goals may [...] BE BASED ON THE PRIMARY CLINICAL RECORDS. [employer] [facility]. provides no warranty or guarantee of the accuracy or completeness of information in this document.
[2025-03-22 14:01] LABS: Internal QC Validated? YES +Cl - CLEAR BKGD; Pregnancy, Serum, hCG Quali. NEGATIVE Negative; Record Kit Lot#, Serum Preg. 0000980607
[2025-03-22] MEDS: Azithromycin 500 MG in 0.9% Normal Saline (250mL Bag) 250 ML 250 MG IV (15:05)
[2025-03-22] MEDS: 0.9% Saline Lock 10 ML Syringe IV ×2 (15:21→17:16)
[2025-03-23] VITALS (10 sets, daily range): BP systolic 110–123; BP diastolic 73–76; PULSE 78–118; RESP 16–19; TEMP 36.4–36.9; O2SAT 84–97
[2025-03-23 04:51] LABS: Hematocrit 37.0 % (37-47); Hemoglobin 12.5 g/dL (12.0-15.0); Immature Granulocytes Count 0.030 X10^3/uL (0.0-0.0); Mean Corp Hgb Conc 33.8 g/dL (32-36); Mean Corpuscular Volume 82.2 fL (81-99); Mean Platelet Vol. 9.2 fl (6.2-12.0); NRBC Flagged by Analyzer 0 % (0-5); Platelet Count 290 K/mm3 (150-450); RBC Distribution Width CV 15.0 % (11.6-14.6); RBC Distribution Width SD 45.4 fl (35.1-43.9); Red Blood Count 4.50 M/mm3 (4.2-5.4); White Blood Count 11.0 K/mm3 (4.4-11.0)
[2025-03-23 05:11] LABS: AST(SGOT) 17 U/L (<=31); Alanine Aminotransfer ALT/SGPT 10 U/L (<=34); Albumin, Serum 4.4 g/dL (3.5-5.0); Alkaline Phosphatase 49 U/L (35-104); Anion Gap 11 (5-15); BUN 8 mg/dL (4-19); BUN/Creat Ratio 17.0 RATIO (10-20); Calcium,Total 9.5 mg/dL (7.6-11.0); Carbon Dioxide 21.8 mmol/L (21.0-32.0); Chloride 104 mmol/L (98-108); Estimated Creatinine Clearance 162.85 ml/min (50-250); Globulin 3.7 g/dL (2.2-4.2); Glucose 143 mg/dL (70-99); Potassium 4.5 mmol/L (3.3-5.1)
[2025-03-23] MEDS: 0.9% Saline Lock 10 ML Syringe IV ×4 (05:38→20:56)
--- NOTE | 2025-03-23 06:54 | PCM.PN.HOSP ---
Reason for Visit Chief Complaint: Shortness of breath Subjective Subjective Breathing better. Objective Data Objective Data Vital Signs: Vital Signs Temp Pulse Resp BP Pulse Ox O2 Del Method O2 Flow Rate 36.9 C 90 16 110/74 94 Nasal Cannula 2 03/23/25 03:30 03/23/25 06:28 03/23/25 06:28 03/23/25 03:30 03/23/25 06:28 03/23/25 06:28 03/23/25 06:28 Oxygen Flow Rate (L/min) 2 Oxygen Delivery Method Nasal Cannula Weight: 58.513 kg Body Mass Index (BMI) 21.4 Intake & Output: Intake and Output for Last 24 Hours 03/21/25 03/22/25 03/23/25 23:59 23:59 23:59 Intake Total 750 / 750 250 / 250 Balance 750 / 750 250 / 250 Lab / Micro Data 03/23/25 04:04 03/23/25 04:04 Labs: Laboratory Results - last 24 hr 03/22/25 10:44: WBC 11.9 H, RBC 4.79, Hgb 12.9, Hct 39.0, MCV 81.4, MCH 26.9 L, MCHC 33.1, RDW Std Deviation 44.2 H, RDW Coeff of Ira 14.8 H, Plt Count 263, MPV 8.8, Immature Gran % (Auto) 0.400, Neut % (Auto) 88.7 H, Lymph % (Auto) 4.[address] L, [place] % (Auto) 4.4, Eos % (Auto) 1.6, Baso % (Auto) 0.3, Absolute Neuts (auto) 10.6 H, Absolute Lymphs (auto) 0.55 L, Nucleated RBC % 0, Sodium 137, Potassium 3.7, Chloride 103, Carbon Dioxide 23.4, Anion Gap 11, BUN 9, Creatinine 0.56 L, Estim Creat Clear Calc 145.40, Est GFR (MDRD) Non-Af 135, BUN/Creatinine Ratio 16.6, Glucose 129 H, Calcium 9.2 03/22/25 10:59: Serum , Qual NEGATIVE 03/23/25 04:04: WBC 11.0, RBC 4.50, Hgb 12.5, Hct 37.0, MCV 82.2, MCH 27.8, MCHC 33.8, RDW Std Deviation 45.4 H, RDW Coeff of Ira 15.0 H, Plt Count 290, MPV 9.2, Immature Gran % (Auto) 0.300, Neut % (Auto) 87.0 H, Lymph % (Auto) 7.[address] L, [place] % (Auto) 5.3, Eos % (Auto) 0.0, Baso % (Auto) 0.1, Absolute Neuts (auto) 9.6 H, Absolute Lymphs (auto) 0.81 L, Nucleated RBC % 0, Sodium 137, Potassium 4.5, Chloride 104, Carbon Dioxide 21.8, Anion Gap 11, BUN 8, Creatinine 0.50 L, Estim Creat Clear Calc 162.85, Est GFR (MDRD) Non-Af 139, BUN/Creatinine Ratio 17.0, Glucose 143 H, Calcium 9.5, Total Bilirubin 0.58, AST 17, ALT 10, Alkaline Phosphatase 49, Total Protein 8.0, Albumin 4.4, Globulin 3.7, Albumin/Globulin Ratio 1.2 Micro: Microbiology 03/22/25 13:24 Mucosa - Nasopharyngeal Respiratory Panel (PCR) - Final Rhinovirus 03/22/25 15:27 Urine, Clean Catch Legionella Antigen - Final 03/22/25 15:27 Urine, Clean Catch Streptococcus pneumoniae Antigen (M - Final 03/22/25 13:24 Mucosa - Nasopharyngeal SARS-CoV-2, Influenza & RSV (PCR) - Final Radiography Diagnostic Testing: Radiology Impression Chest X-Ray 03/22/25 08:42 IMPRESSION: Right lung consolidation, consistent with pneumonia. Reading Location: [facility] Physical Exam Const alert and no apparent distress HEENT head/scalp atraumatic and moist oral mucous membranes Resp normal respiratory effort and no retractions Resp Narrative: Improved aeration overall but still with expiratory wheezes Cardio regular rate, regular rhythm, S1 normal heart sound and S2 normal heart sound GI normal to inspection, nondistended, normoactive bowel sounds, soft to palpation, non-tender and non-distended Extremity normal to inspection and full ROM Neuro oriented x3, CN's II-XII intact bilaterally, moves all extremities and no focal motor deficits Sensorium / Orientation: awake and alert Assessment & Plan Assessment/Plan (1) Asthma: PLAN: Acute asthma exacerbation secondary to pneumonia and rhinovirus Will start her on methylprednisolone as well as continue with bronchodilators. Likely exacerbated due to underlying pneumonia. Strep and legionella antigen negative. Still ongoing with oxygen requirements was 86% on room air at rest and then 84% on room air with activity. Still not ready for discharge yet so continue with ongoing medical treatment. (2) Pneumonia: PLAN: Suspected pneumococcal. Pulmonary toilet. Antibiotics with ceftriaxone & azithromycin PLAN: Plan Nicotine abuse: Patient vapes. Nicotine patch. VTE prophylaxis with enoxaparin Disposition: To be determined. Sentiment the patient can get onto room air and maintain that and is otherwise overall improving. Unclear timing of when that may occur. Charges/Coding Visit Charges Inpatient E&M: 83006 Subs Hosp L2
[2025-03-23] MEDS: Azithromycin 500 MG in 0.9% Normal Saline (250mL Bag) 250 ML 250 MG IV (10:29)
[2025-03-23] MEDS: Nicotine (PBKC) 21 MG Patch TD (19:45)
[2025-03-24] VITALS (20 sets, daily range): BP systolic 93–111; BP diastolic 62–68; PULSE 62–99; RESP 16–20; TEMP 36.1–36.7; O2SAT 91–98
[2025-03-24] MEDS: 0.9% Saline Lock 10 ML Syringe IV ×5 (05:54→21:45)
[2025-03-24 08:17] LABS: Hematocrit 37.0 % (37-47); Hemoglobin 12.4 g/dL (12.0-15.0); Immature Granulocytes Count 0.090 X10^3/uL (0.0-0.0); Mean Corp Hgb Conc 33.5 g/dL (32-36); Mean Corpuscular Volume 82.4 fL (81-99); Mean Platelet Vol. 9.1 fl (6.2-12.0); NRBC Flagged by Analyzer 0 % (0-5); Platelet Count 317 K/mm3 (150-450); RBC Distribution Width CV 15.3 % (11.6-14.6); RBC Distribution Width SD 46.5 fl (35.1-43.9); Red Blood Count 4.49 M/mm3 (4.2-5.4); White Blood Count 13.7 K/mm3 (4.4-11.0)
[2025-03-24 08:36] LABS: Anion Gap 12 (5-15); BUN 14 mg/dL (4-19); BUN/Creat Ratio 26.0 RATIO (10-20); Calcium,Total 9.0 mg/dL (7.6-11.0); Carbon Dioxide 21.5 mmol/L (21.0-32.0); Chloride 104 mmol/L (98-108); Estimated Creatinine Clearance 148.04 ml/min (50-250); Glucose 115 mg/dL (70-99); Potassium 4.0 mmol/L (3.3-5.1)
[2025-03-24] MEDS: Azithromycin 500 MG in 0.9% Normal Saline (250mL Bag) 250 ML 250 MG IV (10:22)
--- NOTE | 2025-03-24 11:26 | PN_ITS ---
Subjective Subjective Patient seen and examined with her nurse by her bedside. She complained of some wheezing. She has an occasional cough which is productive of scanty yellow sputum. She is fine when resting but with mild exertion her heart rate goes up to the 170s. Review of systems otherwise negative. Objective Data Objective Data Vital Signs: Vital Signs Temp Pulse Resp BP Pulse Ox O2 Del Method O2 Flow Rate 98.1 F 94 16 93/62 91 Room Air 2 03/24/25 09:13 03/24/25 10:56 03/24/25 10:56 03/24/25 09:13 03/24/25 09:13 03/24/25 09:13 03/24/25 08:24 Oxygen Flow Rate (L/min) 2 Oxygen Delivery Method Room Air Weight: 129 lb Body Mass Index (BMI) 21.4 Intake & Output: Intake and Output for Last 24 Hours 03/22/25 03/23/25 03/24/25 23:59 23:59 23:59 Intake Total 750 / 750 1270 / 1270 50 / 50 Balance 750 / 750 1270 / 1270 50 / 50 Lab / Micro Data 03/24/25 07:50 03/24/25 07:50 Labs: Laboratory Results - last 24 hr 03/24/25 07:50: WBC 13.7 H, RBC 4.49, Hgb 12.4, Hct 37.0, MCV 82.4, MCH 27.6, MCHC 33.5, RDW Std Deviation 46.5 H, RDW Coeff of Ira 15.3 H, Plt Count 317, MPV 9.1, Immature Gran % (Auto) 0.700, Neut % (Auto) 86.0 H, Lymph % (Auto) 7.0 L, [place] % (Auto) 6.2, Eos % (Auto) 0.0, Baso % (Auto) 0.1, Absolute Neuts (auto) 11.8 H, Absolute Lymphs (auto) 0.96, Nucleated RBC % 0, Sodium 137, Potassium 4.0, Chloride 104, Carbon Dioxide 21.5, Anion Gap 12, BUN 14, Creatinine 0.55 L, Estim Creat Clear Calc 148.04, Est GFR (MDRD) Non-Af 135, BUN/Creatinine Ratio 26.0 H, Glucose 115 H, Calcium 9.0 Micro: Microbiology 03/22/25 15:27 Sputum, Expectorated/Coughed Gram Stain - Final 03/22/25 13:24 Mucosa - Nasopharyngeal Respiratory Panel (PCR) - Final Rhinovirus 03/22/25 15:27 Urine, Clean Catch Legionella Antigen - Final 03/22/25 15:27 Urine, Clean Catch Streptococcus pneumoniae Antigen (M - Final 03/22/25 13:24 Mucosa - Nasopharyngeal SARS-CoV-2, Influenza & RSV (PCR) - Final Physical Exam Const alert, oriented x3 and no apparent distress General Appearance: cooperative and well developed HEENT normocephalic, head/scalp atraumatic and moist oral mucous membranes Eyes EOMs intact bilaterally Neck supple and no JVD Lymph Lymphatic: no lymphedema noted Resp Resp Narrative: Bilateral wheezing and rhonchi. No crackles. On room air. Cardio regular rate, regular rhythm, S1 normal heart sound, S2 normal heart sound and no murmurs GI normal to inspection, nondistended, normoactive bowel sounds, soft to palpation and non-tender Extremity normal capillary refill, no clubbing, cyanosis or edema and no calf tenderness General Extremity: no tenderness to palpation of joints or extremities Skin General Skin Exam: no breakdown Neuro no focal motor deficits and no sensory deficits noted Motor Exam: strength 5/5 throughout Psych thought process normal, cooperative and affect normal Appearance: appropriate Assessment & Plan Assessment/Plan (1) Pneumonia: (2) Hypoxia: PLAN: Plan #Hypoxia due to pneumonia and acute asthma exacerbation * Patient still has some wheezing and rhonchi. * WBCs 13.7 today. Hemoglobin is 12.4 and platelets are 317. * Creatinine is 0.55. On IV ceftriaxone and azithromycin. On IV Solu-Medrol. Breathing treatments bronchodilators. Titrate oxygen as needed to maintain saturation above 90%. #History of asthma: Patient continues to vape. Counseled to quit. Breathing treatments bronchodilators. #History of nicotine dependence: Patient continues to vape as above. Counseled to quit. Nicotine patch as needed DVT prophylaxis: Lovenox Charges/Coding Visit Charges Inpatient E&M: 99868 Subs Hosp L2
--- NOTE | 2025-03-24 15:25 | CASEMGMT ---
Dx:AE Asthma LACE:2 6-Clicks:24 Medical record reviewed and patient evaluated for identification of discharge planning needs. Based on this review, at this time criteria are not present to indicate a need for discharge planning. Will remain available to assist with discharge planning needs as identified or requested.
[2025-03-24] MEDS: MELATONIN 3 MG TABLET PO (21:45)
[2025-03-25] VITALS (11 sets, daily range): BP systolic 117–124; BP diastolic 61–84; PULSE 65–105; RESP 16–18; TEMP 36.5–36.7; O2SAT 92–97
[2025-03-25] MEDS: 0.9% Saline Lock 10 ML Syringe IV ×2 (06:22→09:13)
[2025-03-25 07:23] LABS: Hematocrit 35.8 % (37-47); Hemoglobin 12.0 g/dL (12.0-15.0); Immature Granulocytes Count 0.050 X10^3/uL (0.0-0.0); Mean Corp Hgb Conc 33.5 g/dL (32-36); Mean Corpuscular Volume 81.9 fL (81-99); Mean Platelet Vol. 9.1 fl (6.2-12.0); NRBC Flagged by Analyzer 0 % (0-5); Platelet Count 300 K/mm3 (150-450); RBC Distribution Width CV 15.4 % (11.6-14.6); RBC Distribution Width SD 47.1 fl (35.1-43.9); Red Blood Count 4.37 M/mm3 (4.2-5.4); White Blood Count 10.9 K/mm3 (4.4-11.0)
[2025-03-25 08:04] LABS: Anion Gap 13 (5-15); BUN 11 mg/dL (4-19); BUN/Creat Ratio 19.3 RATIO (10-20); Calcium,Total 8.7 mg/dL (7.6-11.0); Carbon Dioxide 19.1 mmol/L (21.0-32.0); Chloride 105 mmol/L (98-108); Estimated Creatinine Clearance 140.38 ml/min (50-250); Glucose 92 mg/dL (70-99); Potassium 4.1 mmol/L (3.3-5.1)
--- NOTE | 2025-03-25 10:31 | CASEMGMT ---
Pt does not qualify for home oxygen. 6 cl remains 24.
[2025-03-25] MEDS: Azithromycin 500 MG in 0.9% Normal Saline (250mL Bag) 250 ML 250 MG IV (10:32)
--- NOTE | 2025-03-25 11:30 | DCINST_ITS ---
Discharge Instructions DC O2, CPAP, BIPAP needs Home O2 Discharge instructions: No Dressing / Incision Discharge Activity: Return to Normal Activity Weight Bearing Status: Weight bearing as tolerated Dressing / Incision Call your doctor if you observe: Fever of 101 or Higher, Shortness of breath, Dizziness, Swelling in the ankles and Chest pain Follow Up Care Test Results: Test results from this visit will be discussed in further detail at your follow- up appointment, if applicable. Discharge Plan Admission Admit Date/Time: 03/22/25 12:19 Primary Reason for Your Visit: asthma exacerbation, pneumonia Attending Provider: Pallavi Osman Primary Care Provider: Evon Iglesias Consulting Providers: Angelo Gutierrez Instructions Patient Instructions: Acute Severe Asthma, ED Pneumonia (Adult) Discharge Orders/Prescriptions Prescriptions: New levofloxacin 750 mg tablet 750 mg PO DAILY Qty: 3 0RF prednisone 20 mg tablet 40 mg PO DAILY Qty: 10 0RF Continued albuterol sulfate 2.5 MG/3 ML solution for nebulization 1 dose inhalation Q4H PRN PRN (Reason: Sob &/Or Wheezing) Patient Comments: albuterol sulfate [Ventolin HFA] 1 INHALER inhaler 2 puff inhalation Q6H PRN PRN (Reason: Sob &/Or Wheezing) calcium carbonate [Calcium 500] 500 mg calcium (1,250 mg) tablet,chewable 500 mg PO BID PRN (Reason: heartburn) Referrals / Follow Up: Akin Burris DO [Med Staff - Active Staff, Pulmonary Medicine] - Within 1 Month Referral Note: see to establish pulmonology care for asthma Evon Iglesias DO [Primary Care Provider, Internal Medicine] - Within 1 Week Disposition Disposition (needs filled in before D/C Order can be placed): Home, Self Care
--- NOTE | 2025-03-25 11:31 | DS.PCM_ITS ---
Providers Date of Admission: 03/22/25 Date of Discharge: 03/25/25 Primary Care Physician: Dr. Evon Iglesias DO Reason For Visit: AE ASTHMA Diagnosis Discharge Diagnosis (1) Pneumonia: Status: Acute Code(s): J18.9 - Pneumonia, unspecified organism (2) Hypoxia: Status: Acute Code(s): R09.02 - Hypoxemia Plan #Hypoxia due to pneumonia and acute asthma exacerbation * Patient still has some wheezing and rhonchi. * WBCs 13.7 today. Hemoglobin is 12.4 and platelets are 317. * Creatinine is 0.55. On IV ceftriaxone and azithromycin. On IV Solu-Medrol. Breathing treatments bronchodilators. Titrate oxygen as needed to maintain saturation above 90%. #History of asthma: Patient continues to vape. Counseled to quit. Breathing treatments bronchodilators. #History of nicotine dependence: Patient continues to vape as above. Counseled to quit. Nicotine patch as needed DVT prophylaxis: Lovenox Medications at Discharge Home Medications albuterol sulfate 2.5 mg/3 mL (0.083 %) solution for nebulization 1 dose inhalation Q4H PRN PRN Sob &/Or Wheezing 09/02/15 albuterol sulfate 90 mcg/actuation aerosol inhaler (Ventolin HFA) 2 puff inhalation Q6H PRN PRN Sob &/Or Wheezing 09/02/15 calcium carbonate (Calcium 500) 500 mg PO BID PRN heartburn 03/24/25 levofloxacin 750 mg tablet 750 mg PO DAILY #3 tabs 03/25/25 prednisone 20 mg tablet 40 mg (2 x 20 mg) PO DAILY #10 tabs 03/25/25 Hospital Course Operations None Procedures None Summary of Care Provided Minutes Spent on Discharge: 45 Hospital Course: Patient is a 19-year-old female with a past medical history of asthma who was admitted through the ED on 03/22/2025 with a complaint of shortness of breath. She says she had been short of breath for about 4 days prior to admission. She had been using her inhaler but had required it more often and despite all that she continued to get more short of breath so she came into the ED. Chest x-ray showed a right sided infiltrate in the ED. She was therefore admitted and managed for hypoxia due to acute exacerbation of asthma as well as pneumonia. She was saturating at 85% on room air and so required oxygen. She was placed on IV antibiotics and IV Solu-Medrol as well as breathing treatments. Her shortness of breath gradually improved and her rhonchi and wheezing also improved. She was therefore discharged home on 03/25/2025 on p.o. prednisone 40 mg daily for 5 days as well as p.o. Levaquin for 3 days. She was weaned off of room air and with walking pulse ox she did not require any oxygen. She is follow-up with her primary care doctor within 1 to 2 weeks and was also referred to pulmonology on outpatient basis to establish care. Patient was counseled strongly to quit smoking and using a vape. Patient seen and examined prior to discharge. She had no active complaints and had an uneventful night. Review of systems otherwise negative. Labs and vitals reviewed. Medication reviewed and reconciled. Physical Exam Const alert, oriented x3 and no apparent distress General Appearance: cooperative, well kempt and well developed HEENT normocephalic, head/scalp atraumatic, hearing grossly normal bilaterally, moist oral mucous membranes and oropharynx normal Mouth: oral and palatal mucosa normal Eyes EOMs intact bilaterally and conjunctivae normal Neck supple and no JVD Lymph Lymphatic: no lymphedema noted Resp normal respiratory effort, no retractions and no use of accessory muscles Resp Narrative: wheezing and rhonchi have resolved. Cardio regular rate, regular rhythm, S1 normal heart sound, S2 normal heart sound and no murmurs GI normal to inspection, nondistended, normoactive bowel sounds, soft to palpation, non-tender and non-distended Extremity normal to inspection, full ROM, normal capillary refill, no clubbing, cyanosis or edema and no calf tenderness General Extremity: no tenderness to palpation of joints or extremities Skin no rashes or lesions noted General Skin Exam: no breakdown Neuro oriented x3, CN's II-XII intact bilaterally, moves all extremities, no focal motor deficits and no sensory deficits noted Sensorium / Orientation: awake and alert Motor Exam: strength 5/5 throughout Psych thought process normal, cooperative and affect normal Appearance: appropriate Weight / BMI Weight Weight: 129 lb Body Mass Index (BMI) 21.4 ABG / Lab / Microbiology Data 03/25/25 06:56 03/25/25 06:56 Laboratory: Laboratory Results - last 24 hr 03/25/25 06:56: WBC 10.9, RBC 4.37, Hgb 12.0, Hct 35.8 L, MCV 81.9, MCH 27.5, MCHC 33.5, RDW Std Deviation 47.1 H, RDW Coeff of Ira 15.4 H, Plt Count 300, MPV 9.1, Immature Gran % (Auto) 0.500, Neut % (Auto) 74.4 H, Lymph % (Auto) 15.3 L, [place] % (Auto) 9.7, Eos % (Auto) 0.0, Baso % (Auto) 0.1, Absolute Neuts (auto) 8.1 H, Absolute Lymphs (auto) 1.66, Nucleated RBC % 0, Sodium 137, Potassium 4.1, Chloride 105, Carbon Dioxide 19.1 L, Anion Gap 13, BUN 11, Creatinine 0.58 L, Estim Creat Clear Calc 140.38, Est GFR (MDRD) Non-Af 134, BUN/Creatinine Ratio 19.3, Glucose 92, Calcium 8.7 Microbiology: Microbiology 03/22/25 15:27 Sputum, Expectorated/Coughed Gram Stain - Final 03/22/25 15:27 Sputum, Expectorated/Coughed Respiratory Culture - Final Mixed normal respiratory akua. No Streptococcus pneumoniae, beta-hemolytic Streptococcus or Staphylococcus aureus isolated. 03/22/25 13:24 Mucosa - Nasopharyngeal Respiratory Panel (PCR) - Final Rhinovirus 03/22/25 15:27 Urine, Clean Catch Legionella Antigen - Final 03/22/25 15:27 Urine, Clean Catch Streptococcus pneumoniae Antigen (M - Final 03/22/25 13:24 Mucosa - Nasopharyngeal SARS-CoV-2, Influenza & RSV (PCR) - Final D/C Instructions Discharge Activity: Return to Normal Activity Weight Bearing Status: Weight bearing as tolerated Call your doctor if you observe: Fever of 101 or Higher, Shortness of breath, Dizziness, Swelling in the ankles and Chest pain DC O2, CPAP, BIPAP Needs Home O2 Discharge instructions: No DC home with Oxygen: No Meaningful Use Info Meaningful Use Meaningful Use Diagnoses (Choose all that apply): None applicable Discharge Plan Admission Admit Date/Time: 03/22/25 12:19 Primary Reason for Your Visit: asthma exacerbation, pneumonia Attending Provider: Pallavi Osman Primary Care Provider: Evon Iglesias Consulting Providers: Angelo Gutierrez Instructions Patient Instructions: Acute Severe Asthma, ED Pneumonia (Adult) Discharge Orders/Prescriptions Prescriptions: New levofloxacin 750 mg tablet 750 mg PO DAILY Qty: 3 0RF prednisone 20 mg tablet 40 mg PO DAILY Qty: 10 0RF Continued albuterol sulfate 2.5 MG/3 ML solution for nebulization 1 dose inhalation Q4H PRN PRN (Reason: Sob &/Or Wheezing) Patient Comments: albuterol sulfate [Ventolin HFA] 1 INHALER inhaler 2 puff inhalation Q6H PRN PRN (Reason: Sob &/Or Wheezing) calcium carbonate [Calcium 500] 500 mg calcium (1,250 mg) tablet,chewable 500 mg PO BID PRN (Reason: heartburn) Referrals / Follow Up: Akin Burris DO [Med Staff - Active Staff, Pulmonary Medicine] - Within 1 Month Referral Note: see to establish pulmonology care for asthma Evon Iglesias DO [Primary Care Provider, Internal Medicine] - Within 1 Week Disposition Disposition (needs filled in before D/C Order can be placed): Home, Self Care Charges/Coding Visit Charges Inpatient E&M: 27330 Disch Hosp >30min
[2025-03-25] MEDS: Nicotine (PBKC) 21 MG Patch TD (12:17)
--- NOTE | 2025-03-25 13:12 | PHA.DC.MR.R ---
[facility]arm[facility] [place] Med Reconciliation Pharmacy Service has performed discharge medication reconciliation for this patient. Medication education papers prepared, patient discharged when counseling was attempted. The patient's discharge medication list was reviewed for discrepancies and discrepancies were resolved. Medications at Discharge Home Medications albuterol sulfate 2.5 mg/3 mL (0.083 %) solution for nebulization 1 dose inhalation Q4H PRN PRN Sob &/Or Wheezing 09/02/15 albuterol sulfate 90 mcg/actuation aerosol inhaler (Ventolin HFA) 2 puff inhalation Q6H PRN PRN Sob &/Or Wheezing 09/02/15 calcium carbonate (Calcium 500) 500 mg PO BID PRN heartburn 03/24/25 levofloxacin 750 mg tablet 750 mg PO DAILY #3 tabs 03/25/25 prednisone 20 mg tablet 40 mg (2 x 20 mg) PO DAILY #10 tabs 03/25/25
== END 2025-03-25 12:45 | disposition home or self-care (01) | DRG 194 ==
LOC: ED 11:36 → MS3 12:30
PROVIDERS: Emergency Provider Emergency Medicine; PCP Internal Medicine; Visit Provider Student in an Organized Health Care Education/Training Program
DX: J13 Pneumonia due to Streptococcus pneumoniae (principal); J45.901 Unspecified asthma with (acute) exacerbation; F17.290 Nicotine dependence, other tobacco product, uncomplicated; R09.02 Hypoxemia; B97.89 Other viral agents as the cause of diseases classified elsewhere
CPT/HCPCS: 36415; 71045; 80048; 80053; 84703; 85025; 87070; 87205; 87449; 87631; 87633; 94640; 94667; 94668; 94762; 97802; 99285; A4216